=== PATIENT | female | born 2000 | race Caucasian/White ===

== ENCOUNTER 2020-06-15 14:22 | Outpatient (REF) | payer OTHER, SELFPAY ==
[2020-06-16 09:00] LABS: CT PCR NOT DETECTED (Not Detect.); NG PCR NOT DETECTED (Not Detect.)
[2020-06-16 09:05] LABS: BV Int Neg Control Negative (Negative); BV Int Pos Control Positive (Positive)
[2020-06-27 00:56] LABS: HPV 16 RNA NOT DETECTED (NOT DETECTED); HPV mRNA E6/E7 rflx Detected (Not Detected)
== END 2020-06-15 14:23 | disposition home or self-care (01) ==
LOC: HO.LAB 14:22
PROVIDERS: PCP Nurse Practitioner Family; Visit Provider Advanced Practice Midwife
DX: Z30.431 Encounter for routine checking of intrauterine contraceptive device (principal); Z12.4 Encounter for screening for malignant neoplasm of cervix; Z11.51 Encounter for screening for human papillomavirus (HPV); N87.0 Mild cervical dysplasia; Z20.2 Contact with and (suspected) exposure to infections with a predominantly sexual mode of transmission
CPT/HCPCS: 36415; 81025; 87480; 87491; 87510; 87591; 87624; 87625; 87660; 88141; 88142; 99202

== ENCOUNTER → 2020-08-14 12:10 | Outpatient (BNVA) | payer OTHER, SELFPAY | PROVIDERS: Visit Provider Obstetrics & Gynecology ==

== ENCOUNTER 2020-08-18 09:15 | Emergency (ER) | payer OTHER, SELFPAY ==
[2020-08-18 10:10] VITALS: BP 107/63; PULSE 69; RESP 14; TEMP 36.7; O2SAT 99; BMI 28.3
--- NOTE | 2020-08-18 10:29 | ED.ABDPAIN ---
HPI - Abdominal Pain General Chief Complaint: Abdominal Pain <DOMINGO Sutherland Last Filed: 08/18/20 15:16> Stated Complaint: ABD PAIN <DOMINGO Sutherland Last Filed: 08/18/20 15:16> Time Seen by Provider: 08/18/20 10:39 <DOMINGO Sutherland Last Filed: 08/18/20 15:16> Source: patient <DOMINGO Sutherland Last Filed: 08/18/20 15:16> Mode of arrival: ambulatory <DOMINGO Sutherland Last Filed: 08/18/20 15:16> Limitations: no limitations <DOMINGO Sutherland Last Filed: 08/18/20 15:16> History of Present Illness HPI narrative: Patient presents to ED for upper abdominal pain, nausea, vomiting, diarrhea. Patient states she woke up with belly pain and then had 3 episodes of diarrhea and 2 episodes of emesis. Patient denies any fever, chills, dysuria, hematuria, flank pain, coughing, chest pain or, shortness of breath. <DOMINGO Sutherland Last Filed: 08/18/20 15:16> Related Data Home Medications: Home Medications Medication Instructions Recorded Confirmed levonorgestrel 20 mcg/24 hours (6 INTRAUTERINE 06/15/20 06/21/20 yrs) 52 mg intrauterine device Previous Rx's Medication Instructions Recorded metronidazole 500 mg tablet 500 mg PO BID 7 Days #14 tab 07/09/20 <DOMINGO Sutherland Last Filed: 08/18/20 15:16> Allergies/Adverse Reactions: Allergies Allergy/AdvReac Type Severity Reaction Status Date / Time No Known Allergies Allergy Verified 08/14/20 12:11 [No Known Allergies*] <DOMINGO Sutherland Last Filed: 08/18/20 15:16> Review of Systems Review of Systems Yes all other systems are reviewed and are negative <DOMINGO Sutherland Last Filed: 08/18/20 15:16> Constitutional: Reports as per HPI and Reports no additional constitutional complaints <DOMINGO Sutherland Last Filed: 08/18/20 15:16> Eyes: Reports as per HPI and Reports no additional eye complaints <DOMINGO Sutherland Last Filed: 08/18/20 15:16> Reports system reviewed and no additional complaints, except as documented and Reports as per HPI <DOMINGO Sutherland Last Filed: 08/18/20 15:16> Cardiovascular: Reports as per HPI and Reports no additional cardiovascular complaints <DOMINGO Sutherland Last Filed: 08/18/20 15:16> Respiratory: Reports as per HPI and Reports no additional respiratory complaints <DOMINGO Sutherland Last Filed: 08/18/20 15:16> Gastrointestinal: Reports as per HPI, Reports no additional gastrointestinal complaints, Reports abdominal pain (upper), Reports diarrhea, Reports nausea and Reports vomiting <DOMINGO Sutherland Last Filed: 08/18/20 15:16> Genitourinary: Reports no additional female genitourinary complaints and Reports as per HPI <DOMINGO Sutherland Last Filed: 08/18/20 15:16> Musculoskeletal: Reports no additional musculoskeletal complaints and Reports as per HPI <DOMINGO Sutherland Last Filed: 08/18/20 15:16> Reports system reviewed and no additional complaints, except as documented and Reports as per HPI <DOMINGO Sutherland Last Filed: 08/18/20 15:16> Psychiatric: Reports no additional psychiatric complaints and Reports as per HPI <DOMINGO Sutherland - Last Filed: 08/18/20 15:16> Physical Exam Vital Signs: Vital Signs: Last Vital Signs Temp 98.2 F 08/18/20 13:26 Pulse 49 L 08/18/20 13:26 Resp 16 08/18/20 13:26 BP 104/59 L 08/18/20 13:49 Pulse Ox 100 08/18/20 13:26 Body Mass Index 28.3 <DOMINGO Sutherland Last Filed: 08/18/20 15:16> Vital Signs: Last Vital Signs Temp 98.2 F 08/18/20 13:26 Pulse 49 L 08/18/20 13:26 Resp 16 08/18/20 13:26 BP 104/59 L 08/18/20 13:49 Pulse Ox 100 08/18/20 13:26 Body Mass Index 28.3 <Terry Byers MD - Last Filed: 09/10/20 01:37> Const: General: cooperative, healthy appearing, comfortable, no acute distress, well developed, alert, awake and Physically active <Cristofer Deepak, [facility] Last Filed: 08/18/20 15:16> Orientation/consciousness: patient oriented x3 <Cristofer Deepak, PA Last Filed: 08/18/20 15:16> HENMT: Head: Yes normal to inspection, Yes No palpable skull fracture present, Yes normocephalic and Yes atraumatic <Cristofer Deepak, PA Last Filed: 08/18/20 15:16> Eyes: General: appearance normal, both eyes and all related structures <Cristofer Deepak, [facility] Last Filed: 08/18/20 15:16> Neck: Neck: Yes normal visual inspection, Yes full ROM, Yes no lymphadenopathy, Yes no meningeal signs, Yes trachea midline, Yes supple and No tender <Cristofer Deepak, [facility] Last Filed: 08/18/20 15:16> Chest: Chest palpation & inspection: normal inspection of the chest and normal palpation of entire chest wall <Cristofer Deepak, [facility] Last Filed: 08/18/20 15:16> Resp: Effort & Inspection: normal respiratory effort and able to speak in complete sentences <Cristofer Deepak, [facility] Last Filed: 08/18/20 15:16> Auscultation: clear to auscultation bilaterally <Cristofer Deepak, [facility] Last Filed: 08/18/20 15:16> Cardio: Jugular venous distension: no JVD <Cristofer Deepak, [facility] Last Filed: 08/18/20 15:16> Heart sounds: S1 normal heart sound present and S2 normal heart sound present <Cristofer Sotelo [facility] Last Filed: 08/18/20 15:16> GI: Inspection: Yes normal to inspection and No abdominal wall ecchymosis <Cristofer Sotelo [facility] Last Filed: 08/18/20 15:16> Palpation (GI): Tenderness to palpation present (GI) in the epigastrum; not in the LLQ, not in the RLQ, not in the LUQ, not in the RUQ, not at McBurney's point, not periumbilically, not suprapubicly, Shen's sign negative, obturator sign negative, psoas sign negative, with no rebound tenderness and Rovsing's sign negative, no guarding and not rigid <DOMINGO Sutherland - Last Filed: 08/18/20 15:16> : General: No CVA tenderness and Yes no CVA tenderness <DOMINGO Sutherland Last Filed: 08/18/20 15:16> Back/Spine/Pelvis: Back: no CVA tenderness, No CVA tenderness and No back tenderness <DOMINGO Sutherland Last Filed: 08/18/20 15:16> Skin: General skin exam: no rashes or lesions noted and elasticity normal <DOMINGO Sutherland Last Filed: 08/18/20 15:16> Neuro: General: patient oriented x3, no meningeal signs and CN's II-XI intact bilaterally <DOMINGO Sutherland - Last Filed: 08/18/20 15:16> Cranial nerves: Yes CN's II-XII intact bilaterally <DOMINGO Sutherland - Last Filed: 08/18/20 15:16> Extrem: General: Yes normal to inspection and Yes full ROM <DOMINGO Sutherland - Last Filed: 08/18/20 15:16> Psych: Appearance: grossly normal, well kempt and not disheveled <DOMINGO Sutherland Last Filed: 08/18/20 15:16> Course Course Course Narrative: Patient will have labs and GI cocktail to treat symptoms. Patient also be sent for COVID swab. <DOMINGO Sutherland - Last Filed: 08/18/20 15:16> I have reviewed the chart <Terry Byers MD - Last Filed: 09/10/20 01:37> Reevaluation(s) Reevaluation #1: Patient labs are normal. Negative for white blood cell count elevation. LFTs are normal. COVID swab negative. Patient passed p.o. challenge. Will do bedside ultrasound before discharge <DOMINGO Sutherland Last Filed: 08/18/20 15:16> Reevaluation #2: Bedside Negative for gallstones. Patient passed p.o. challenge. Patient will be discharged. Abdomen on re-evaluation is soft and non-tender. <DOMINGO Sutherland Last Filed: 08/18/20 15:16> MDM - Abdominal Pain Lab Data Result diagrams: : 08/18/20 10:43 08/18/20 10:43 <DOMINGO Sutherland - Last Filed: 08/18/20 15:16> Labs: Lab Results 08/18/20 08/18/20 08/18/20 Range/Units 10:43 10:43 10:43 WBC 9.0 (4.8-10.8) X10*3/uL RBC 4.25 (4.20-5.50) X10*6/uL Hgb 13.1 (12.0-16.0) g/dl Hct 39.6 (37-47) % MCV 93.2 (80-98) fL MCH 30.8 (27.0-33.0) pg MCHC 33.1 (31.0-35.0) g/dl RDW 11.5 (11.0-16.0) % Plt Count 205 (160-400) X10*3/uL MPV 10.8 (9.4-12.3) fL Immature Gran % (Auto) 0.4 (0.0-0.4) % Neut % (Auto) 68.7 (45-73) % Lymph % (Auto) 23.6 (20-40) % [place] % (Auto) 6.1 (2-11) % Eos % (Auto) 0.6 (0-4) % Baso % (Auto) 0.6 (0-2) % Lymph # (Auto) 2.1 (1.2-4.9) X10*3/uL [place] # (Auto) 0.6 (0.1-1.2) X10*3/uL Eos # (Auto) 0.1 (0.0-0.4) X10*3/uL Baso # (Auto) 0.1 (0.0-0.2) X10*3/uL Abs Immat Gran (auto) 0.04 H (0.00-0.03) X10*3/uL Absolute Neuts (auto) 6.2 (2.0-8.3) X10*3/uL Absolute Nucleated RBC 0.000 (0.0-0.012) X10*3/uL Nucleated RBC % (auto) 0.0 (0.0-0.2) /100WBC PT 14.8 H (10.8-13.0) SEC INR 1.2 H (0.9-1.1) APTT 34.8 (24.1-38.0) SEC Sodium 140 (135-145) mmol/L Potassium 4.1 (3.3-5.1) mmol/L Chloride 109 H (96-108) mmol/L Carbon Dioxide 26 (22-29) mmol/L Anion Gap 9 L (12-20) BUN 11 (9-16) mg/dL Creatinine 0.70 (0.5-1.4) mg/dL Estim Creat Clear Calc 102.1 Estimated GFR > 60 Random Glucose 108 (60-115) mg/dL Calcium 8.9 (8.4-10.2) mg/dL Total Bilirubin 0.6 (0.0-1.0) mg/dL Direct Bilirubin 0.2 (0.0-0.5) mg/dL AST 12 (5-31) U/L ALT 13 (0-31) U/L Alkaline Phosphatase 58 (39-117) U/L Total Protein 6.2 L (6.5-8.0) g/dL Albumin 3.9 (3.5-5.0) g/dL Lipase 25 (8-78) U/L Urine Color Urine Appearance Urine pH (5.0-8.0) Ur Specific [place] (1.005-1.025) Urine Protein (NEG-TRACE) MG/DL Urine Glucose (UA) (NEG) MG/DL Urine Ketones (NEG) MG/DL Urine Blood (NEG) Urine Nitrite (NEG) Ur Leukocyte Esterase (NEG) Urine Test (NEGATIVE) Coronavirus (PCR) (Negative) Influenza Type A (PCR) (Negative) Influenza Type B (PCR) (Negative) RSV RNA Qual (PCR) (Negative) 08/18/20 08/18/20 08/18/20 Range/Units 10:50 11:55 11:55 WBC (4.8-10.8) X10*3/uL RBC (4.20-5.50) X10*6/uL Hgb (12.0-16.0) g/dl Hct (37-47) % MCV (80-98) fL MCH (27.0-33.0) pg MCHC (31.0-35.0) g/dl RDW (11.0-16.0) % Plt Count (160-400) X10*3/uL MPV (9.4-12.3) fL Immature Gran % (Auto) (0.0-0.4) % Neut % (Auto) (45-73) % Lymph % (Auto) (20-40) % [place] % (Auto) (2-11) % Eos % (Auto) (0-4) % Baso % (Auto) (0-2) % Lymph # (Auto) (1.2-4.9) X10*3/uL [place] # (Auto) (0.1-1.2) X10*3/uL Eos # (Auto) (0.0-0.4) X10*3/uL Baso # (Auto) (0.0-0.2) X10*3/uL Abs Immat Gran (auto) (0.00-0.03) X10*3/uL Absolute Neuts (auto) (2.0-8.3) X10*3/uL Absolute Nucleated RBC (0.0-0.012) X10*3/uL Nucleated RBC % (auto) (0.0-0.2) /100WBC PT (10.8-13.0) SEC INR (0.9-1.1) APTT (24.1-38.0) SEC Sodium (135-145) mmol/L Potassium (3.3-5.1) mmol/L Chloride (96-108) mmol/L Carbon Dioxide (22-29) mmol/L Anion Gap (12-20) BUN (9-16) mg/dL Creatinine (0.5-1.4) mg/dL Estim Creat Clear Calc Estimated GFR Random Glucose (60-115) mg/dL Calcium (8.4-10.2) mg/dL Total Bilirubin (0.0-1.0) mg/dL Direct Bilirubin (0.0-0.5) mg/dL AST (5-31) U/L ALT (0-31) U/L Alkaline Phosphatase (39-117) U/L Total Protein (6.5-8.0) g/dL Albumin (3.5-5.0) g/dL Lipase (8-78) U/L Urine Color YELLOW Urine Appearance CLEAR Urine pH 7.5 (5.0-8.0) Ur Specific [place] <= 1.005 (1.005-1.025) Urine Protein NEG (NEG-TRACE) MG/DL Urine Glucose (UA) NEG (NEG) MG/DL Urine Ketones NEG (NEG) MG/DL Urine Blood NEG (NEG) Urine Nitrite NEG (NEG) Ur Leukocyte Esterase NEG (NEG) Urine Test NEGATIVE (NEGATIVE) Coronavirus (PCR) NEGATIVE (Negative) Influenza Type A (PCR) NEGATIVE (Negative) Influenza Type B (PCR) NEGATIVE (Negative) RSV RNA Qual (PCR) NEGATIVE (Negative) <DOMINGO Sutherland - Last Filed: 08/18/20 15:16> Lab Results 08/18/20 08/18/20 08/18/20 Range/Units 10:43 10:43 10:43 WBC 9.0 (4.8-10.8) X10*3/uL RBC 4.25 (4.20-5.50) X10*6/uL Hgb 13.1 (12.0-16.0) g/dl Hct 39.6 (37-47) % MCV 93.2 (80-98) fL MCH 30.8 (27.0-33.0) pg MCHC 33.1 (31.0-35.0) g/dl RDW 11.5 (11.0-16.0) % Plt Count 205 (160-400) X10*3/uL MPV 10.8 (9.4-12.3) fL Immature Gran % (Auto) 0.4 (0.0-0.4) % Neut % (Auto) 68.7 (45-73) % Lymph % (Auto) 23.6 (20-40) % [place] % (Auto) 6.1 (2-11) % Eos % (Auto) 0.6 (0-4) % Baso % (Auto) 0.6 (0-2) % Lymph # (Auto) 2.1 (1.2-4.9) X10*3/uL [place] # (Auto) 0.6 (0.1-1.2) X10*3/uL Eos # (Auto) 0.1 (0.0-0.4) X10*3/uL Baso # (Auto) 0.1 (0.0-0.2) X10*3/uL Abs Immat Gran (auto) 0.04 H (0.00-0.03) X10*3/uL Absolute Neuts (auto) 6.2 (2.0-8.3) X10*3/uL Absolute Nucleated RBC 0.000 (0.0-0.012) X10*3/uL Nucleated RBC % (auto) 0.0 (0.0-0.2) /100WBC PT 14.8 H (10.8-13.0) SEC INR 1.2 H (0.9-1.1) APTT 34.8 (24.1-38.0) SEC Sodium 140 (135-145) mmol/L Potassium 4.1 (3.3-5.1) mmol/L Chloride 109 H (96-108) mmol/L Carbon Dioxide 26 (22-29) mmol/L Anion Gap 9 L (12-20) BUN 11 (9-16) mg/dL Creatinine 0.70 (0.5-1.4) mg/dL Estim Creat Clear Calc 102.1 Estimated GFR > 60 Random Glucose 108 (60-115) mg/dL Calcium 8.9 (8.4-10.2) mg/dL Total Bilirubin 0.6 (0.0-1.0) mg/dL Direct Bilirubin 0.2 (0.0-0.5) mg/dL AST 12 (5-31) U/L ALT 13 (0-31) U/L Alkaline Phosphatase 58 (39-117) U/L Total Protein 6.2 L (6.5-8.0) g/dL Albumin 3.9 (3.5-5.0) g/dL Lipase 25 (8-78) U/L Urine Color Urine Appearance Urine pH (5.0-8.0) Ur Specific [place] (1.005-1.025) Urine Protein (NEG-TRACE) MG/DL Urine Glucose (UA) (NEG) MG/DL Urine Ketones (NEG) MG/DL Urine Blood (NEG) Urine Nitrite (NEG) Ur Leukocyte Esterase (NEG) Urine Test (NEGATIVE) Coronavirus (PCR) (Negative) Influenza Type A (PCR) (Negative) Influenza Type B (PCR) (Negative) RSV RNA Qual (PCR) (Negative) 08/18/20 08/18/20 08/18/20 Range/Units 10:50 11:55 11:55 WBC (4.8-10.8) X10*3/uL RBC (4.20-5.50) X10*6/uL Hgb (12.0-16.0) g/dl Hct (37-47) % MCV (80-98) fL MCH (27.0-33.0) pg MCHC (31.0-35.0) g/dl RDW (11.0-16.0) % Plt Count (160-400) X10*3/uL MPV (9.4-12.3) fL Immature Gran % (Auto) (0.0-0.4) % Neut % (Auto) (45-73) % Lymph % (Auto) (20-40) % [place] % (Auto) (2-11) % Eos % (Auto) (0-4) % Baso % (Auto) (0-2) % Lymph # (Auto) (1.2-4.9) X10*3/uL [place] # (Auto) (0.1-1.2) X10*3/uL Eos # (Auto) (0.0-0.4) X10*3/uL Baso # (Auto) (0.0-0.2) X10*3/uL Abs Immat Gran (auto) (0.00-0.03) X10*3/uL Absolute Neuts (auto) (2.0-8.3) X10*3/uL Absolute Nucleated RBC (0.0-0.012) X10*3/uL Nucleated RBC % (auto) (0.0-0.2) /100WBC PT (10.8-13.0) SEC INR (0.9-1.1) APTT (24.1-38.0) SEC Sodium (135-145) mmol/L Potassium (3.3-5.1) mmol/L Chloride (96-108) mmol/L Carbon Dioxide (22-29) mmol/L Anion Gap (12-20) BUN (9-16) mg/dL Creatinine (0.5-1.4) mg/dL Estim Creat Clear Calc Estimated GFR Random Glucose (60-115) mg/dL Calcium (8.4-10.2) mg/dL Total Bilirubin (0.0-1.0) mg/dL Direct Bilirubin (0.0-0.5) mg/dL AST (5-31) U/L ALT (0-31) U/L Alkaline Phosphatase (39-117) U/L Total Protein (6.5-8.0) g/dL Albumin (3.5-5.0) g/dL Lipase (8-78) U/L Urine Color YELLOW Urine Appearance CLEAR Urine pH 7.5 (5.0-8.0) Ur Specific [place] <= 1.005 (1.005-1.025) Urine Protein NEG (NEG-TRACE) MG/DL Urine Glucose (UA) NEG (NEG) MG/DL Urine Ketones NEG (NEG) MG/DL Urine Blood NEG (NEG) Urine Nitrite NEG (NEG) Ur Leukocyte Esterase NEG (NEG) Urine Test NEGATIVE (NEGATIVE) Coronavirus (PCR) NEGATIVE (Negative) Influenza Type A (PCR) NEGATIVE (Negative) Influenza Type B (PCR) NEGATIVE (Negative) RSV RNA Qual (PCR) NEGATIVE (Negative) <Terry Byers MD - Last Filed: 09/10/20 01:37> Discharge Plan Discharge Clinical Impression: Gastroenteritis <DOMINGO Sutherland - Last Filed: 08/18/20 15:16> Patient Disposition: Home, Self-Care <DOMINGO Sutherland - Last Filed: 08/18/20 15:16> Instructions: Gastroenteritis (ED) <DOMINGO Sutherland - Last Filed: 08/18/20 15:16> Additional Instructions: Return to the ED immediately for abdominal pain, right lower quadrant pain, decreased appetite, fever, chills, dysuria, hematuria, flank pain, dizziness, weakness, or any other concerning symptoms. Please follow-up with PCP. Your blood work came back fine. COVID swab came back negative. <DOMINGO Sutherland - Last Filed: 08/18/20 15:16> Prescriptions: No Action metronidazole [Flagyl] 500 mg tablet 500 mg PO BID 7 Days Qty: 14 RF: 0 Mirena 20 mcg/24 hours (6 yrs) 52 mg intrauterine device intrauterine RF: 0 <DOMINGO Sutherland - Last Filed: 08/18/20 15:16> Stand Alone Forms: Work/School Release <DOMINGO Sutherland - Last Filed: 08/18/20 15:16> Interventions: ED Discharge Assessment Last Done: 08/18/20 14:16 <DOMINGO Sutherland - Last Filed: 08/18/20 15:16> Discharge Date/Time: 08/18/20 14:41 <DOMINGO Sutherland - Last Filed: 08/18/20 15:16> Print Language: Slovak <DOMINGO Sutherland - Last Filed: 08/18/20 15:16> [facility] Past Medical History Medical History: Medical History History of asthma Physical exam <DOMINGO Sutherland - Last Filed: 08/18/20 15:16> Family History Family History: Family History Mother No problems noted. Father No problems noted. <DOMINGO Sutherland - Last Filed: 08/18/20 15:16> Social History Social History: Social History Alcohol intake: never Use of substances other than those prescribed or required for medical reasons: No Advance Directives: No Advance Directives Information Provided: No Gender identity: female <DOMINGO Sutherland - Last Filed: 08/18/20 15:16>
[2020-08-18 10:51] LABS: MANUAL DIFF FLAG NO
[2020-08-18] MEDS: 0.9 % Sodium Chloride 1,000 ML 999 ML IV (10:52)
[2020-08-18] MEDS: ondansetron HCL 4 MG/2 ML VIAL IVPUSH (10:52)
[2020-08-18] MEDS: Lidocaine HCl Viscous 2 % 15 ML SOLUTION MUCOUS MEM (10:53)
[2020-08-18] MEDS: Famotidine/PF 20 MG/2 ML VIAL IVPUSH (10:53)
[2020-08-18] MEDS: Magnesium Hydrox/Alum Hydrox 30 ML ORAL.SUSP PO (10:53)
[2020-08-18 10:56] LABS: Basophils Absolute Auto 0.1 X10*3/uL (0.0-0.2); Basophils Percent Auto 0.6 % (0-2); Eosinophils Absolute Auto 0.1 X10*3/uL (0.0-0.4); Eosinophils Percent Auto 0.6 % (0-4); Hematocrit 39.6 % (37-47); Hemoglobin 13.1 g/dl (12.0-16.0); Imm Gran Abs Auto 0.04 X10*3/uL (0.00-0.03); Imm Gran Pct Auto 0.4 % (0.0-0.4); Lymphocytes Absolute Auto 2.1 X10*3/uL (1.2-4.9); Lymphocytes Percent Auto 23.6 % (20-40); Mean Corpuscular HGB Conc 33.1 g/dl (31.0-35.0); Mean Corpuscular Hemoglobin 30.8 pg (27.0-33.0); Mean Corpuscular Volume 93.2 fL (80-98); Mean Platelet Volume 10.8 fL (9.4-12.3); Monocytes Absolute Auto 0.6 X10*3/uL (0.1-1.2); Monocytes Percent Auto 6.1 % (2-11); Neutrophils Absolute Auto 6.2 X10*3/uL (2.0-8.3); Neutrophils Percent Auto 68.7 % (45-73); Platelet Count 205 X10*3/uL (160-400); Red Blood Count 4.25 X10*6/uL (4.20-5.50); Red Cell Distribution Width 11.5 % (11.0-16.0)
[2020-08-18 11:03] LABS: INTERNATIONAL NORM RATIO 1.2 (0.9-1.1); Prothrombin Time 14.8 SEC (10.8-13.0)
[2020-08-18 11:06] LABS: Partial Thromboplastin Time 34.8 SEC (24.1-38.0)
[2020-08-18 11:30] LABS: Alanine Aminotransferase 13 U/L (0-31); Albumin Level 3.9 g/dL (3.5-5.0); Alkaline Phosphatase 58 U/L (39-117); Anion Gap 9 (12-20); Aspartate Amino Transferase 12 U/L (5-31); Bilirubin Direct 0.2 mg/dL (0.0-0.5); Bilirubin Total 0.6 mg/dL (0.0-1.0); Blood Urea Nitrogen 11 mg/dL (9-16); Calcium 8.9 mg/dL (8.4-10.2); Carbon Dioxide 26 mmol/L (22-29); Chloride 109 mmol/L (96-108); Creatinine Clr Calc Pharmacy 102.1; Estimated Glomerular Filt Rate > 60; Glucose Random 108 mg/dL (60-115); Lipase 25 U/L (8-78); Potassium 4.1 mmol/L (3.3-5.1); Sodium 140 mmol/L (135-145); Total Protein 6.2 g/dL (6.5-8.0)
[2020-08-18 11:33] LABS: Influenza A PCR NEGATIVE (Negative); Influenza B PCR NEGATIVE (Negative); Resp Syncy Virus RNA Qual PCR NEGATIVE (Negative); SARS COV2 PCR INHOUSE NEGATIVE (Negative)
[2020-08-18 12:23] LABS: Glucose Urine UA NEG (NEG); Leukocyte Esterase Urine NEG (NEG); Nitrite Urine NEG (NEG); PH 7.5 (5.0-8.0); Specific Gravity - Urine <= 1.005 (1.005-1.025); Urine Blood NEG (NEG); Urine Ketones NEG (NEG); Urine Protein NEG (NEG-TRACE)
[2020-08-18 12:28] LABS: UPreg QC Valid YES; Urine Pregnancy NEGATIVE (NEGATIVE)
[2020-08-18 12:29] LABS: Appearance Urine CLEAR; Color Urine YELLOW
[2020-08-18 12:55] VITALS: BP 92/45; PULSE 47; RESP 16; O2SAT 99
[2020-08-18 13:26] VITALS: BP 90/55; PULSE 49; RESP 16; TEMP 36.8; O2SAT 100
[2020-08-18 13:49] VITALS: BP 104/59
== END 2020-08-18 14:41 | disposition home or self-care (01) ==
PROVIDERS: Physician Assistant; Emergency Provider Emergency Medicine
DX: K52.9 Noninfective gastroenteritis and colitis, unspecified (principal); Z20.822 Contact with and (suspected) exposure to COVID-19; R10.10 Upper abdominal pain, unspecified
CPT/HCPCS: 0241U; 36415; 80053; 80076; 81003; 81025; 82248; 83690; 85025; 85610; 85730; 96361; 96374; 96375; 99284; J2405

== ENCOUNTER 2020-09-27 16:26 | Emergency (ER) | payer OTHER, SELFPAY ==
[2020-09-27 16:43] VITALS: BP 103/46; PULSE 67; RESP 16; TEMP 36.4; O2SAT 98; BMI 28.3
--- NOTE | 2020-09-27 16:59 | ED.DENTAL ---
HPI - Dental/Oral General Chief complaint: Dental/Oral Stated complaint: Dental pain Time Seen by Provider: 09/27/20 16:53 Source: patient Mode of arrival: ambulatory Limitations: no limitations History of Present Illness HPI Narrative: 20-year-old female presenting to the ED with complaints of left lower wisdom tooth pain for the past few days worse today. Reports that she has not had time to call her dentist/ oral surgeon although she will call tomorrow. Denies any other symptoms complaints or concerns at this time. Related Data Home Medications Medication Instructions Recorded Confirmed levonorgestrel 20 mcg/24 hours (6 INTRAUTERINE 06/15/20 06/21/20 yrs) 52 mg intrauterine device Previous Rx's Medication Instructions Recorded metronidazole 500 mg tablet 500 mg PO BID 7 Days #14 tab 07/09/20 acetaminophen [Tylenol Extra 1,000 mg PO QID PRN #14 tab 09/27/20 Strength] amoxicillin-pot clavulanate 1 tab PO BID 10 Days #20 tab 09/27/20 [Augmentin] ibuprofen 800 mg PO Q8H PRN #14 tab 09/27/20 oxycodone 5 mg PO BID PRN #10 tab 09/27/20 Allergies Allergy/AdvReac Type Severity Reaction Status Date / Time No Known Allergies Allergy Verified 08/14/20 12:11 [No Known Allergies*] Review of Systems Review of Systems: Constitutional : No Fever, No Chills, No changes in PO intake, No difficulty speaking, no recent dental procedure, no heat or cold intolerance while eating, no recent face trauma, ENT/Mouth : + Dental pain, No Sore throat, No Jaw pain, No throat swelling, No swallowing difficulty, no change in voice, No facial swelling, no drooling, no trismus, no bleeding, no lacerations, no tongue swelling, gum swelling, Eyes: No Eye Pain, No periorbital Swelling Cardiovascular : No Chest Pain, No SOB Respiratory : No Cough, No Sputum, No Wheezing, No Smoke Exposure, No Dyspnea Gastrointestinal : No Nausea, No Vomiting, No Diarrhea Genitourinary : No Dysuria Musculoskeletal : No Myalgias Skin : No rash, no facial swelling or redness, Neuro : No Weakness, No Numbness, No Headache Yes all other systems are reviewed and are negative PMFSH Past Medical History Attestation statement: The following information was validated with the patient. Medical History History of asthma Physical exam Family History Family History Mother No problems noted. Father No problems noted. Social History Social History Alcohol intake: never Advance Directives: No Advance Directives Information Provided: No Patient : No Gender identity: female Physical Exam Vital Signs: Vital Signs: Last Vital Signs Temp 97.6 F 09/27/20 16:43 Pulse 67 09/27/20 16:43 Resp 16 09/27/20 16:43 BP 103/46 L 09/27/20 16:43 Pulse Ox 98 09/27/20 16:43 Body Mass Index 28.3 vital signs have been reviewed as normal and appeared to be correct. Blood pressure normal. Heart rate normal. Respiration rate normal. Temperature normal. Oxygen saturation normal. Appearance: Alert. Oriented X3. No acute distress. Head: Normal external exam. Normocephalic. Atraumatic. Eyes: PERRLA. EOMI. Conjunctiva and sclera normal. Eyelids normal. ENT: EAC normal. TM's Normal. Pharynx normal. Uvula midline. Moist mucous membranes. No trismus noted. No drooling noted. No muffled voice noted. Dentition: Patient with tenderness to palpation to left lower posterior teeth / gum although no fluctuance. No erythema. Gingival within normal limits. No fluctuance. Not consistent with peritonsillar abscess. Not consistent with dental abscess. No salivary duct obstruction noted. Neck: Normal inspection. Neck supple. FROM. No adenopathy. Thyroid Normal. No meningeal signs. No neck mass noted. Trachea midline. CVS: Normal heart rate and rhythm. Heart sound normal. No murmurs noted. Pulses normal throughout. Respiratory: No respiratory distress. Painless inspiration. Breath sounds normal. No wheezes/rales/rhonchi noted. Chest nontender. No accessory muscle usage noted or decreased air movement noted. Back: Full range of motion noted. Skin: Skin warm and dry. Normal skin color. Normal skin turgor. No rashes/lesions/lacerations noted. Extremities:Extremities exhibit normal range of motion. Extremities nontender. Neuro: Oriented X 3. No motor deficit. No sensory deficit. Reflexes normal. Course Course Course Narrative: Patient with dental pain. No signs of infection. Not consistent with peritonsillar abscess / pharyngeal abscess /dental abscess. Will DC home with antibiotics and symptomatic treatment structures to follow-up with dentist/ oral surgeon and to return if any new or worsening symptoms. Patient understands agrees with this plan. MDM - Dental/Oral Medical Records Attestation: I reviewed the patient's medical records. Discharge Plan Discharge Clinical Impression: Toothache Patient Disposition: Home, Self-Care Instructions: Toothache (ED) Prescriptions: New ibuprofen 800 mg tablet 800 mg PO Q8H PRN (Reason: pain) Qty: 14 RF: 0 acetaminophen [Tylenol Extra Strength] 500 mg tablet 1,000 mg PO QID PRN (Reason: fever or pain) Qty: 14 RF: 0 amoxicillin-pot clavulanate [Augmentin] 875-125 mg tablet 1 tab PO BID 10 Days Qty: 20 RF: 0 oxycodone 5 mg tablet 5 mg PO BID PRN (Reason: pain) Qty: 10 RF: 0 No Action metronidazole [Flagyl] 500 mg tablet 500 mg PO BID 7 Days Qty: 14 RF: 0 Mirena 20 mcg/24 hours (6 yrs) 52 mg intrauterine device intrauterine RF: 0 Referrals: Physician,Unknown [Primary Care Provider] - 2 days (your dentist/oral surgeon ) Print Language: Slovak
== END 2020-09-27 17:19 | disposition home or self-care (01) ==
PROVIDERS: Emergency Provider Internal Medicine
DX: K08.89 Other specified disorders of teeth and supporting structures (principal)
CPT/HCPCS: 99283; 99284

== ENCOUNTER 2020-10-19 11:54 | Emergency (ER) | payer OTHER, SELFPAY ==
[2020-10-19 12:24] VITALS: PULSE 78; RESP 20; TEMP 37.1; O2SAT 98; BMI 24.0
--- NOTE | 2020-10-19 13:06 | ED.URI ---
HPI - URI/Sore Throat General Chief Complaint: Upper Respiratory Symptoms Stated Complaint: sore throat, cough Time Seen by Provider: 10/19/20 12:56 Source: patient Mode of arrival: ambulatory Limitations: no limitations History of Present Illness MD elicited complaint: sore throat, rhinorrhea and nasal congestion Onset (ago): day(s) (Two days) Consistency: constant and progressively worsening Severity: moderate Description of mucous: clear, watery and yellow Able to tolerate fluids by mouth: Yes Exacerbating factors: swallowing Relieving factors: nothing Context: sick contacts (Boyfriend with similar symptoms as symptoms ) Associated symptoms: denies other symptoms Treatments prior to arrival: none Related Data Home Medications Medication Instructions Recorded Confirmed levonorgestrel 20 mcg/24 hours (6 INTRAUTERINE 06/15/20 06/21/20 yrs) 52 mg intrauterine device Previous Rx's Medication Instructions Recorded metronidazole 500 mg tablet 500 mg PO BID 7 Days #14 tab 07/09/20 acetaminophen [Tylenol Extra 1,000 mg PO QID PRN #14 tab 09/27/20 Strength] amoxicillin-pot clavulanate 1 tab PO BID 10 Days #20 tab 09/27/20 [Augmentin] ibuprofen 800 mg PO Q8H PRN #14 tab 09/27/20 oxycodone 5 mg PO BID PRN #10 tab 09/27/20 acetaminophen [Tylenol Extra 1,000 mg PO QID PRN #14 tab 10/19/20 Strength] azithromycin See Rx Instructions .ROUTE 10/19/20 .COMPLEX #6 tab codeine-guaifenesin [Guaifenesin 5 ml PO Q6H PRN #120 ml 10/19/20 AC] cyclobenzaprine 10 mg PO Q8H #10 tab 10/19/20 ibuprofen 800 mg PO Q8H PRN #14 tab 10/19/20 Allergies Allergy/AdvReac Type Severity Reaction Status Date / Time No Known Allergies Allergy Verified 08/14/20 12:11 [No Known Allergies*] Review of Systems Review of Systems: Constitutional : No Fever, No Chills, No fatigue, No Malaise ENT/Mouth : Positive sore throat/runny nose Eyes: No Discharge Cardiovascular : No Chest Pain, No SOB Respiratory : No Cough, No Sputum, No Wheezing, No Smoke Exposure, No Dyspnea Gastrointestinal : No Nausea, No Vomiting, No Diarrhea Genitourinary : No irregular bleeding, No Dysuria, No Urinary Frequency, No Hematuria, No Urinary Incontinence, No Urgency, No Flank Pain, Musculoskeletal : No Myalgia Skin : No rash Neuro : No Headache Yes all other systems are reviewed and are negative [facility] Past Medical History Attestation statement: The following information was validated with the patient. Medical History History of asthma Physical exam Family History Family History Mother No problems noted. Father No problems noted. Social History Social History Alcohol intake: never Advance Directives: No Advance Directives Information Provided: No Gender identity: female Physical Exam Vital Signs: Vital Signs: Last Vital Signs Temp 98.8 F 10/19/20 12:24 Pulse 78 10/19/20 12:24 Resp 20 10/19/20 12:24 Pulse Ox 98 10/19/20 12:24 Body Mass Index 24.0 vital signs have been reviewed as normal and appeared to be correct. Blood pressure normal. Heart rate normal. Respiration rate normal. Temperature normal. Oxygen saturation normal. Appearance: Alert. Oriented X3. No acute distress. Head: Normal external exam. Normocephalic. Atraumatic. Eyes: PERRLA. EOMI. Conjunctiva and sclera normal. Eyelids normal. ENT: EAC normal. TM's Normal. Posterior pharynx mildly erythematous. No exudate is noted. Uvula midline. Moist mucous membranes. No trismus noted. No drooling noted. No muffled voice noted. Neck: Normal inspection. Neck supple. FROM. No adenopathy. Thyroid Normal. No meningeal signs. No neck mass noted. CVS: Normal heart rate and rhythm. Heart sound normal. Pulses normal throughout. No murmurs/rales/gallops. Respiratory: No respiratory distress. Painless inspiration. Breath sounds normal. No wheezes/rales/rhonchi noted. Chest nontender. No accessory muscle usage noted or decreased air movement noted. Back: Full range of motion noted. No rashes/lesion/induration/fluctuance or signs of infection noted. Skin: Skin warm and dry. Normal skin color. Normal skin turgor. No rashes/lesions/lacerations noted. Extremities: Extremities exhibit normal range of motion. Extremities nontender. Neuro: Oriented X 3. No motor deficit. No sensory deficit. Reflexes normal. Normal steady gait. No focal neuro deficits noted. Course Course Course Narrative: 20-year-old female with URI symptoms. Not vaccinated for COVID. Boyfriend has similar symptoms. No recent travel. Will swab for COVID/RSV/flu and strep and DC home with antibiotics and symptomatic treatment will call them in approximately 2-4 hours and let them know if they are positive or negative. Patient and boyfriend at bedside understand agree with this plan. MDM - URI/Sore Throat Medical Records Attestation: I reviewed the patient's medical records. Lab Data Attestation: I reviewed the patient's lab results. Discharge Plan Discharge Clinical Impression: Upper respiratory infection Patient Disposition: Home, Self-Care Instructions: Upper Respiratory Infection (ED), COVID-19 (Coronavirus Disease 2019) (ED) Additional Instructions: Based on your symptoms and history we have sent a COVID-19. Although your RESULT IS PENDING at this time. RESULTS should return within 2-4 hours. At this time you will be contacted with either NEGATIVE OR POSITIVE results. -Please wait until we contact you for your results. At this time you will be okay for discharge. Please plan for self quarantine for up to 14 days. Do not expose yourself to others. You may not go to work. If testing does come back negative you may return to activities as long as you are no longer having any symptoms for at least 3 days. Please continue to follow cold instructions and wash your hands frequently. You may take Tylenol as directed on the bottle for pain or fever. Patient seen in the emergency department on 10/19/2020 and should be excused from work until negative test results AND until 72 hours without any symptoms AND at least 10 days have passed since symptoms first appeared or since last exposure to COVID-19 positive patient CDC Guidelines for home isolation: - Stay away from others - WEAR A MASK if you are sick AND STAY HOME - Cover your mouth and nose with a tissue when you cough or sneeze. Dispose of tissues in a lined trash can and wash your hands immediately with soap and water for at least 20 seconds. If soap and water are not available, clean hands with alcohol-based hand net application support specialist that contains at least 60% alcohol. - Clean your hands often with soap and water for at least 20 seconds - Avoid touching your eyes, nose and mouth with unwashed hands - Do not share dishes, drinking glasses, cups, eating utensils, towels, or bedding with other people in your home. After using these items, wash them thoroughly with soap and water or put in the generation technician. - Clean high-touch surfaces in your isolation area ( sick room and bathroom) every day; let a caregiver clean and disinfect high-touch surfaces in other areas of the home. Clean the area or item with soap and water or another detergent if it is dirty. Then, use a household disinfectant. - Limit contact with pets and animals: If you must care for a pet, wash your hands before and after interacting with them). Prescriptions: New cyclobenzaprine 10 mg tablet 10 mg PO Q8H Qty: 10 RF: 0 azithromycin 250 mg tablet See Rx Instructions .ROUTE .COMPLEX Qty: 6 RF: 0 codeine-guaifenesin [Guaifenesin AC] 10-100 mg/5 mL liquid 5 ml PO Q6H PRN (Reason: cold symptoms) Qty: 120 RF: 0 ibuprofen 800 mg tablet 800 mg PO Q8H PRN (Reason: pain) Qty: 14 RF: 0 acetaminophen [Tylenol Extra Strength] 500 mg tablet 1,000 mg PO QID PRN (Reason: fever or pain) Qty: 14 RF: 0 No Action metronidazole [Flagyl] 500 mg tablet 500 mg PO BID 7 Days Qty: 14 RF: 0 ibuprofen 800 mg tablet 800 mg PO Q8H PRN (Reason: pain) Qty: 14 RF: 0 acetaminophen [Tylenol Extra Strength] 500 mg tablet 1,000 mg PO QID PRN (Reason: fever or pain) Qty: 14 RF: 0 amoxicillin-pot clavulanate [Augmentin] 875-125 mg tablet 1 tab PO BID 10 Days Qty: 20 RF: 0 oxycodone 5 mg tablet 5 mg PO BID PRN (Reason: pain) Qty: 10 RF: 0 Mirena 20 mcg/24 hours (6 yrs) 52 mg intrauterine device intrauterine RF: 0 Referrals: Physician,Unknown [Primary Care Provider] - 2 days (your pcp) Stand Alone Forms: Work/School Release Print Language: Estonian
[2020-10-19 13:36] LABS: IDNOW Serial# 08D9AD1C; Strep A Nucleic Acid Positive (Negative)
[2020-10-19 14:03] LABS: Influenza A PCR NEGATIVE (Negative); Influenza B PCR NEGATIVE (Negative); Resp Syncy Virus RNA Qual PCR NEGATIVE (Negative); SARS COV2 PCR INHOUSE NEGATIVE (Negative)
== END 2020-10-19 13:37 | disposition home or self-care (01) ==
PROVIDERS: Physician Assistant Medical; Emergency Provider Emergency Medicine
DX: J06.9 Acute upper respiratory infection, unspecified (principal); Z20.822 Contact with and (suspected) exposure to COVID-19
CPT/HCPCS: 0241U; 36415; 87651; 99283

== ENCOUNTER 2021-01-05 10:07 | Outpatient (REF) | payer OTHER, SELFPAY ==
[2021-01-06 09:21] LABS: CT PCR NOT DETECTED (Not Detect.); NG PCR NOT DETECTED (Not Detect.)
== END 2021-01-05 10:08 | disposition home or self-care (01) ==
LOC: HO.LAB 10:07
PROVIDERS: Visit Provider Obstetrics & Gynecology
DX: N93.9 Abnormal uterine and vaginal bleeding, unspecified (principal); Z97.5 Presence of (intrauterine) contraceptive device
CPT/HCPCS: 87491; 87591; 99212

== ENCOUNTER 2021-04-20 14:34 | Outpatient (REF) | payer OTHER, SELFPAY ==
[2021-04-20 15:55] LABS: Binax Internal Control QC Valid; Binax Now Covid-19 Ag Positive (Negative)
== END 2021-04-20 14:35 | disposition home or self-care (01) ==
LOC: HO.LAB 14:34
PROVIDERS: Visit Provider Internal Medicine
DX: Z20.822 Contact with and (suspected) exposure to COVID-19 (principal)
CPT/HCPCS: C9803

== ENCOUNTER 2021-06-18 13:54 | Outpatient (REF) | payer OTHER, SELFPAY ==
[2021-06-19 02:48] LABS: CT PCR NOT DETECTED (Not Detect.); NG PCR NOT DETECTED (Not Detect.)
[2021-06-19 14:20] LABS: BV Int Neg Control Negative (Negative); BV Int Pos Control Positive (Positive)
[2021-06-23 16:42] LABS: HPV mRNA E6/E7 rflx Not Detected (Not Detected)
== END 2021-06-18 13:55 | disposition home or self-care (01) ==
LOC: HO.LAB 13:54
PROVIDERS: Visit Provider Advanced Practice Midwife
DX: Z01.419 Encounter for gynecological examination (general) (routine) without abnormal findings (principal); Z11.51 Encounter for screening for human papillomavirus (HPV); Z20.2 Contact with and (suspected) exposure to infections with a predominantly sexual mode of transmission
CPT/HCPCS: 87480; 87491; 87510; 87591; 87624; 87660; 88142

== ENCOUNTER → 2021-07-21 09:18 | Outpatient (BNVA) | payer OTHER, SELFPAY | PROVIDERS: Visit Provider Advanced Practice Midwife | DX: Z30.432 Encounter for removal of intrauterine contraceptive device (principal); Z31.69 Encounter for other general counseling and advice on procreation | CPT/HCPCS: 58301; 99212 ==

== ENCOUNTER 2021-11-12 17:43 | Emergency (ER) | payer OTHER, SELFPAY ==
--- NOTE | ~2021-11-12 | US_ITS ---
EXAMINATION: US ABDOMEN LIMITED CLINICAL INFORMATION: This is a 21-year-old female with right upper quadrant pain. Possible gallbladder disease.. COMPARISON: None TECHNIQUE: Real-time imaging of the right upper quadrant abdominal viscera. FINDINGS: PANCREAS: Normal. LIVER: Normal. The liver is normal in size. The liver contour is normal. Parenchymal echogenicity is normal. No focal hepatic lesion. There is no intrahepatic biliary duct dilatation seen. GALLBLADDER: Normal. The gallbladder is physiologically distended without evidence of stones, sludge, polyps, wall thickening or pericholecystic fluid. The patient is tender directly over the gallbladder with the ultrasound transducer. The gallbladder appears contracted which may be accentuating the gallbladder wall thickness measuring 0.4 cm. COMMON BILE DUCT: Normal in caliber measuring 0.6 cm in diameter. RIGHT KIDNEY: Normal. No hydronephrosis. No renal calculi or focal parenchymal lesions. The kidney measures 10.2 cm in maximum dimension. FREE FLUID: None. US/US abdomen limited IMPRESSION: 1. The gallbladder appears contracted and there is tenderness directly over the gallbladder with the ultrasound transducer.
--- NOTE | ~2021-11-12 | XR_ITS ---
EXAMINATION: XR CHEST CLINICAL INFORMATION: Painful breathing COMPARISON: None TECHNIQUE: Frontal view of the chest was obtained. FINDINGS: No significant abnormality is noted involving the heart, lungs, mediastinum, bony thorax or soft tissues. XR/XR chest 1V IMPRESSION: Unremarkable examination.
[2021-11-12 18:32] VITALS: BP 103/64; PULSE 63; RESP 16; TEMP 36.6; O2SAT 100; BMI 26.2
[2021-11-12] MEDS: Ibuprofen 600 MG TABLET PO (18:38)
--- NOTE | 2021-11-12 19:54 | ED.GENADULT ---
HPI - General Adult General Chief complaint: General Medical Stated complaint: sharp pain under R breast/Diff breathing Time Seen by Provider: 11/12/21 19:54 Source: patient Mode of arrival: ambulatory Limitations: no limitations History of Present Illness HPI narrative: Patient is a 21 year old female presenting to the emergency department today with right sided abdominal pain. Patient states that she is having right sided abdominal pain that is worse with inspiration. Patient denies any dizziness, lightheadedness, nausea, vomiting, fever, chills, blurry vision, double vision, loss of vision, chest pain, difficulty breathing, shortness of breath, back pain, night sweats, pain with urination, increased urinary frequency, increased urinary urgency, blood in her urine or stool, syncope or a near syncopal episode, recent trauma or falls, bowel incontinence, bladder incontinence, bowel retention, bladder retention, or any other complaints at this time. Onset (ago): day(s) Location: abdomen and right Radiation: non-radiation Severity: mild Severity scale (1-10): 3 Quality: sharp Pain Consistency: intermittent Relieving factors: none Exacerbating factors: other (deep breathing) Associated symptoms: denies other symptoms Treatments prior to arrival: none Related Data Home Medications Medication Instructions Recorded Confirmed levonorgestrel 20 mcg/24 hours (7 intrauterine 01/05/21 07/21/21 yrs) 52 mg intrauterine device (Mirena) Previous Rx's Medication Instructions Recorded vitamin with calcium 1 tab PO DAILY #90 tabs 06/18/21 no.72-iron 27 mg-folic acid 1 mg tablet ( Vitamins Plus Low Iron) Allergies Allergy/AdvReac Type Severity Reaction Status Date / Time No Known Allergies Allergy Verified 11/12/21 18:35 [No Known Allergies*] Review of Systems Constitutional: Constitutional: Reports no additional constitutional complaints, Denies chills, Denies fever(s) and Denies night sweats Eyes: Eyes: Reports no additional eye complaints, Denies blurry vision, Denies change in vision, Denies diplopia, Denies eye discharge, Denies loss of vision and Denies eye pain ENT: Denies dizziness Cardiovascular: Cardiovascular: Reports no additional cardiovascular complaints, Denies chest pain, Denies lightheadedness, Denies Loss of Consciousness and Denies dyspnea Respiratory: Respiratory: Reports no additional respiratory complaints and Denies dyspnea Gastrointestinal: Gastrointestinal: Reports no additional gastrointestinal complaints, Reports abdominal pain, Denies melena, Denies hematochezia, Denies change in bowel habits and Denies change in stool character Genitourinary: Genitourinary: Denies hematuria, Denies urinary frequency, Denies dysuria, Denies urinary incontinence, Denies urinary hesitancy and Denies urinary urgency Musculoskeletal: Musculoskeletal: Reports no additional musculoskeletal complaints, Denies numbness and Denies tingling Neurologic: Denies dizziness, Denies loss of vision, Denies numbness and Denies tingling Psychiatric: Psychiatric: Reports no additional psychiatric complaints Endocrine: Endocrine: Reports no additional endocrine complaints Hematologic/Lymphatic: Hematologic/Lymphatic: Reports no additional hematologic/lymphatic complaints Allergic/Immunologic: Allergic/Immunologic: Reports no additional allergic/immunologic complaints [facility] Past Medical History Attestation statement: The following information was validated with the patient. Source: old records reviewed Medical History History of asthma Physical exam Surgical History Hx of section Family History Family History Mother No problems noted. Father No problems noted. Social History Social History Alcohol intake: never Advance Directives: No Advance Directives Information Provided: Yes Gender identity: Female Physical Exam ED Vital Signs: Vital Signs - 24 hr 11/12/21 18:32 Temperature 97.9 F Pulse Rate 63 Respiratory Rate 16 Blood Pressure 103/64 Pulse Oximetry 100 Oxygen Delivery Method Room Air BMI result Body Mass Index 26.2 Const General: cooperative, no acute distress, alert and awake Nutritional Appearance: well nourished Orientation/consciousness: patient oriented x3 Limitations: no limitations HENMT Head: Yes normal to inspection and Yes atraumatic Ears: hearing grossly normal bilaterally and external ears normal General nose exam: Normal external nose present, no nasal discharge noted and no epistaxis Face and sinus: Yes normal facial exam, No abrasion and No laceration Mouth: Normal oral and palatal mucosa present, no drooling and no muffled voice Eyes General: appearance normal, both eyes and all related structures Periorbital: periorbital findings normal Eyelids: Yes eyelids normal Conjunctivae: conjunctivae normal Pupils: Equal, round and reactive pupils present EOM: EOMs intact bilaterally Neck Neck: Yes normal visual inspection, Yes full ROM and Yes no lymphadenopathy Chest Chest palpation & inspection: normal inspection of the chest Resp Effort & Inspection: normal respiratory effort and able to speak in complete sentences Auscultation: clear to auscultation bilaterally Cardio Rate: regular rate Rhythm: regular rhythm GI Inspection: Yes normal to inspection Palpation (GI): Soft to palpation, not firm, Tenderness to palpation present (GI) in the RUQ and Shen's sign positive, no guarding and not rigid Neuro General: patient oriented x3 and moves all extremities Cranial nerves: Yes Equal, round and reactive pupils present Cognition (Neuro): normal cognition Motor exam (neuro): 5/5 motor strength present throughout Sensory Exam: Normal double simultaneous stimulation for sensation Coordination: [id number] test normal Extrem General: Yes normal to inspection, Yes full ROM and Yes capillary refill normal Psych Appearance: grossly normal Mental Status: mental status grossly normal Affect: normal affect Attitude: cooperative Thought process: Normal thought process present Thought content: Normal thought content present Insight: Good insight present (Psych) Medical Decision Making MDM Narrative Medical decision making narrative: Patient is a 21 year old female presenting to the emergency department today with right sided abdominal pain. Patient's physical exam showed right upper quadrant abdominal pain and a positive shen's sign. Patient's RUQ ultrasound showed a contracted gallbladder but no acute process. Patient eloped while waiting to have her lab work drawn. I was unable to review the US results or my physical exam findings with the patient. Differential Diagnosis Differential Diagnosis: cholecystitis, bilary colic Medical Records Medical records reviewed: Yes I reviewed the patient's medical records. Imaging Data Abdominal US: Attestation: I personally reviewed and interpreted this imaging study as follows: My impression: No acute process. Radiologist's impression: EXAMINATION: US ABDOMEN LIMITED CLINICAL INFORMATION: This is a 21-year-old female with right upper quadrant pain. Possible gallbladder disease.. COMPARISON: None TECHNIQUE: Real-time imaging of the right upper quadrant abdominal viscera. FINDINGS: PANCREAS: Normal. LIVER: Normal. The liver is normal in size. The liver contour is normal. Parenchymal echogenicity is normal. No focal hepatic lesion. There is no intrahepatic biliary duct dilatation seen. GALLBLADDER: Normal. The gallbladder is physiologically distended without evidence of stones, sludge, polyps, wall thickening or pericholecystic fluid. The patient is tender directly over the gallbladder with the ultrasound transducer. The gallbladder appears contracted which may be accentuating the gallbladder wall thickness measuring 0.4 cm. COMMON BILE DUCT: Normal in caliber measuring 0.6 cm in diameter. RIGHT KIDNEY: Normal. No hydronephrosis. No renal calculi or focal parenchymal lesions. The kidney measures 10.2 cm in maximum dimension. FREE FLUID: None. US/US abdomen limited IMPRESSION: ? 1. The gallbladder appears contracted and there is tenderness directly over the gallbladder with the ultrasound transducer. Dictated By: Dom Dela Cruz MD Signed By: Electronically signed by Dom Dela Cruz MD 11/12/212111 Chest x-ray: Attestation: I personally reviewed and interpreted this imaging study as follows: My impression: No acute process. Radiologist's impression: EXAMINATION: XR CHEST CLINICAL INFORMATION: Painful breathing COMPARISON: None TECHNIQUE: Frontal view of the chest was obtained. FINDINGS: No significant abnormality is noted involving the heart, lungs, mediastinum, bony thorax or soft tissues. XR/XR chest 1V IMPRESSION: Unremarkable examination. Dictated By: Yina Martin MD Signed By: Electronically signed by Yina Martin MD 11/12/21 8315 Discharge Plan Discharge Clinical Impression: Abdominal pain Patient Disposition: Elopement Prescriptions: No Action Vitamin Plus Low Iron 27 mg iron- 1 mg tablet 1 tab PO DAILY Qty: 90 4RF Mirena 20 mcg/24 hours (6 yrs) 52 mg intrauterine device intrauterine Interventions: ED Discharge Assessment Last Done: 11/12/21 22:44 Discharge Date/Time: 11/12/21 22:45
== END 2021-11-12 22:45 | disposition left against medical advice (07) ==
PROVIDERS: Emergency Provider Emergency Medicine; PCP Internal Medicine
DX: R10.9 Unspecified abdominal pain (principal)
CPT/HCPCS: 71045; 76705; 99283; 99284

== ENCOUNTER 2022-01-03 12:43 | Emergency (ER) | payer OTHER, SELFPAY ==
--- NOTE | ~2022-01-03 | US_ITS ---
EXAMINATION: US appendix CLINICAL INFORMATION: Right lower quadrant pain COMPARISON: None. TECHNIQUE: Imaging of the abdomen was performed with a high-frequency linear transducer using graded compression. FINDINGS: The appendix is not demonstrated due to overlying gas and stool. No inflammatory changes are identified in the right lower quadrant. There is no free fluid. US/US appendix IMPRESSION: Appendix is not identified sonographically. No inflammatory changes identified in the right lower quadrant.
--- NOTE | ~2022-01-03 | US_ITS ---
EXAMINATION: US OBSTETRICAL ULTRASOUND CLINICAL INFORMATION: Positive home test, now with right lower quadrant pain COMPARISON: OB ultrasound 07/08/2017. LMP: 11/04/2021. Gestational age by maternal dates is 8 weeks and 4 days. Estimated date of delivery by maternal dates is 08/11/2021. TECHNIQUE: Ultrasound of the maternal pelvis is performed using transabdominal and transvaginal transducers. Transvaginal imaging is performed due to inadequate visualization transabdominally. M-mode Doppler is also performed. FINDINGS: There is a single intrauterine gestational sac with visible yolk sac and embryo. No cardiac activity was identified.. There is no significant subchorionic hemorrhage or hematoma. CRL (crown rump length): 0.2 cm (5 weeks and 6 days +/- 4 days). CONNOR (estimated date of delivery): 08/30/2021 +/- 4 days. MATERNAL ADNEXA: The right maternal ovary measures 3.6 x 1.9 x 1.8 cm. A physiologic hemorrhagic right corpus luteum is noted. The left maternal ovary measures 2.2 x 1.9 x 1.1 cm. Left ovary is unremarkable. There is no significant maternal adnexal mass. Trace pelvic free fluid. US/US pelvic ovarian doppler IMPRESSION: 1. Single intrauterine gestation with ultrasound gestational age of 5 weeks and 6 days +/- 4 days. No cardiac motion was identified which is a finding suspicious for failure however not diagnostic for failure. Recommend follow-up ultrasound in 7-14 days and correlation with beta hCG. 2. No suspicious adnexal mass or findings to suggest ovarian torsion. 3. Trace simple pelvic free fluid.
--- NOTE | ~2022-01-03 | US_ITS ---
EXAMINATION: US OBSTETRICAL ULTRASOUND CLINICAL INFORMATION: Positive home test, now with right lower quadrant pain COMPARISON: OB ultrasound 07/08/2017. LMP: 11/04/2021. Gestational age by maternal dates is 8 weeks and 4 days. Estimated date of delivery by maternal dates is 08/11/2021. TECHNIQUE: Ultrasound of the maternal pelvis is performed using transabdominal and transvaginal transducers. Transvaginal imaging is performed due to inadequate visualization transabdominally. M-mode Doppler is also performed. FINDINGS: There is a single intrauterine gestational sac with visible yolk sac and embryo. No cardiac activity was identified.. There is no significant subchorionic hemorrhage or hematoma. CRL (crown rump length): 0.2 cm (5 weeks and 6 days +/- 4 days). CONNOR (estimated date of delivery): 08/30/2021 +/- 4 days. MATERNAL ADNEXA: The right maternal ovary measures 3.6 x 1.9 x 1.8 cm. A physiologic hemorrhagic right corpus luteum is noted. The left maternal ovary measures 2.2 x 1.9 x 1.1 cm. Left ovary is unremarkable. There is no significant maternal adnexal mass. Trace pelvic free fluid. US/US OB <= 14 weeks fetus IMPRESSION: 1. Single intrauterine gestation with ultrasound gestational age of 5 weeks and 6 days +/- 4 days. No cardiac motion was identified which is a finding suspicious for failure however not diagnostic for failure. Recommend follow-up ultrasound in 7-14 days and correlation with beta hCG. 2. No suspicious adnexal mass or findings to suggest ovarian torsion. 3. Trace simple pelvic free fluid.
[2022-01-03 13:00] VITALS: BP 119/57; PULSE 57; RESP 18; O2SAT 98; BMI 25.0
--- NOTE | 2022-01-03 15:45 | ED_ITS ---
HPI - General Adult General Chief complaint: General Medical Stated complaint: spotting/cramping Time Seen by Provider: 01/03/22 15:44 Source: patient Mode of arrival: ambulatory History of Present Illness HPI narrative: 21-year-old female with positive home test on 12/25/21, presenting to the ED complaining right-sided abdominal/flank pain and brown spotting x today. Reports associated nausea. States symptoms have improved since onset. Denies vomiting, diarrhea/constipation, fever, dysuria, vaginal discharge, concern for STI Onset (ago): hour(s) Related Data Home Medications Medication Instructions Recorded Confirmed levonorgestrel 20 mcg/24 hours (7 intrauterine 01/05/21 07/21/21 yrs) 52 mg intrauterine device (Mirena) Previous Rx's Medication Instructions Recorded vitamin with calcium 1 tab PO DAILY #90 tabs 06/18/21 no.72-iron 27 mg-folic acid 1 mg tablet ( Vitamins Plus Low Iron) Allergies Allergy/AdvReac Type Severity Reaction Status Date / Time No Known Allergies Allergy Verified 11/12/21 18:35 [No Known Allergies*] Review of Systems Review of Systems: Constitutional: No Fever, No Chills, No Fatigue, No Malaise ENT/Mouth: No Hearing loss, No Ear Pain, No Nasal Congestion, No sore throat Eyes: No Eye Pain, No Swelling, No Redness, No Vision Changes Cardiovascular: No Chest Pain, No SOB, No Edema, No Palpitations Respiratory: No Cough, No Sputum, No Dyspnea Gastrointestinal: + Nausea, No Vomiting, No Diarrhea, No Constipation, + Abdominal pain Genitourinary: + irregular bleeding, No Dysuria, No Urinary Frequency, No Hematuria, No Urinary Incontinence/retention, +Flank Pain, No Urinary Flow Changes, No Hesitancy Musculoskeletal: No joint pain, No Myalgias, No Joint Swelling Skin: No Skin Lesions, No rash Neuro: No Weakness, No Loss of Consciousness, No Dizziness, No Headache Yes all other systems are reviewed and are negative Constitutional: Constitutional: Reports as per [facility] Past Medical History Attestation statement: The following information was validated with the patient. Medical History History of asthma Physical exam Surgical History Hx of section Family History Family History Mother No problems noted. Father No problems noted. Social History Social History Alcohol intake: never Advance Directives: Yes Advance Directives Information Provided: Yes Advance Directives on File: No Gender identity: Female Physical Exam ED Vital Signs: Vital Signs - 24 hr 01/03/22 13:00 Pulse Rate 57 Respiratory Rate 18 Blood Pressure 119/57 L Pulse Oximetry 98 Oxygen Delivery Method Room Air BMI result Body Mass Index 25.0 Const General: cooperative, healthy appearing and no acute distress Orientation/consciousness: patient oriented x3 Limitations: no limitations HENMT Head: Yes normal to inspection and Yes atraumatic Ears: hearing grossly normal bilaterally General nose exam: Normal external nose present Face and sinus: Yes normal facial exam Eyes General: appearance normal, both eyes and all related structures EOM: EOMs intact bilaterally Neck Neck: Yes normal visual inspection and Yes no meningeal signs Resp Effort & Inspection: normal respiratory effort and no respiratory distress Cardio Rate: regular rate Heart sounds: S1 normal heart sound present and S2 normal heart sound present GI Inspection: Yes normal to inspection Palpation (GI): Soft to palpation, Tenderness to palpation present (GI) in the RLQ and suprapubicly; with no rebound tenderness, no guarding and not rigid General: Yes CVA tenderness on the right Speculum Exam - Vagina: normal vaginal discharge, No vaginal bleeding and no masses Speculum Exam - Cervix: normal appearance of the cervix Bimanual exam- vagina & uterus: no cervical motion tenderness Bimanual Exam- Adnexa, other: tender on the right OB/external & speculum: No vaginal bleeding Back/Spine/Pelvis Back: CVA tenderness Skin Rashes: no rashes Wounds: no wounds Neuro General: patient oriented x3, tone normal and no meningeal signs Gait exam (Neuro): Normal gait present Extrem General: Yes normal to inspection Course Course Course Narrative: -1714--no leukocytosis. H&H stable. UA with trace ketones and protein. Urine positive -1729--bilirubin is mildly elevated. HCG 7498 -ABO + does not need Rhogam -1835--US appendix IMPRESSION: Appendix is not identified sonographically. No inflammatory changes identified in the right lower quadrant. US OB <= 14 weeks fetus IMPRESSION: 1. Single intrauterine gestation with ultrasound gestational age of? 5 weeks and 6 days +/- 4 days. No cardiac motion was identified which is a finding suspicious for failure however not diagnostic for failure. Recommend follow-up ultrasound in 7-14 days and correlation with beta hCG. 2. No suspicious adnexal mass or findings to suggest ovarian torsion. 3. Trace simple pelvic free fluid. >> patient's pain could be related to hemorrhagic right-sided corpus luteum cys t, could also be appendicitis. This was discussed with patient. Also discussed with patient potential for failed vs being too early. Patient was provided with lab slip for repeat hCG in 48 hours order was also put in the computer. Already has an appointment OBGYN on 01/12, discussed need for repeat ultrasound in 7-14 days. Discussed strict return precautions including increasing worsening/unremitting pain, continued/worsening bleeding, nausea/vomiting/inability to tolerate p.o., fever, etc. to return to the ED immediately Results discussed with patient including worrisome signs and symptoms and strict return precautions, and when to return to the emergency department. They verbalized understanding and feel safe for discharge at this time. Medical Decision Making MDM Narrative Medical decision making narrative: 21-year-old female with positive home test on 12/25/21, presenting to the ED complaining right-sided abdominal/flank pain and brown sp otting x today. On exam vital signs stable, NAD, nontoxic appearing, abdomen soft with RLQ/suprapubic >R and R CVAT, no rebound or guarding, on pelvic exam normal vaginal d/c noted, no appreciable bleeding, no CMT, +R adnexal ttp Concern for ectopic vs ovarian cyst vs torsion vs ?appendicitis vs renal stone/colic or pyelo Lower suspicion for PID or TOA Plan: Labs, UA, , US, STI testing, reassess Medical Records Medical records reviewed: Yes I reviewed the patient's medical records. Lab Data Lab results reviewed: Yes I reviewed the patient's lab results. Result diagrams: 01/03/22 16:55 01/03/22 16:55 Labs: Lab Results 01/03/22 01/03/22 01/03/22 Range/Units 16:55 16:55 16:55 WBC 9.9 (4.8-10.8) X10*3/uL RBC 4.35 (4.20-5.50) X10*6/uL Hgb 13.4 (12.0-16.0) g/dl Hct 38.4 (37.0-47.0) % MCV 88.3 (80.0-98.0) fL MCH 30.8 (27.0-33.0) pg MCHC 34.9 (31.0-35.0) g/dl RDW 11.6 (11.0-16.0) % Plt Count 222 (160-400) X10*3/uL MPV 10.3 (9.4-12.3) fL Immature Gran % (Auto) 0.5 H (0.0-0.4) % Neut % (Auto) 62.6 (45-73) % Lymph % (Auto) 30.8 (20-40) % [place] % (Auto) 5.0 (2-11) % Eos % (Auto) 0.5 (0-4) % Baso % (Auto) 0.6 (0-2) % Lymph # (Auto) 3.1 (1.2-4.9) X10*3/uL [place] # (Auto) 0.5 (0.1-1.2) X10*3/uL Eos # (Auto) 0.1 (0.0-0.4) X10*3/uL Baso # (Auto) 0.1 (0.0-0.2) X10*3/uL Abs Immat Gran (auto) 0.05 H (0.00-0.03) X10*3/uL Absolute Neuts (auto) 6.2 (2.0-8.3) x10*3/uL Absolute Nucleated RBC 0.000 (0.0-0.012) X10*3/uL Nucleated RBC % (auto) 0.0 (0.0-0.2) /100WBC Sodium 139 (135-145) mmol/L Potassium 3.6 (3.3-5.1) mmol/L Chloride 106 (96-108) mmol/L Carbon Dioxide 22 (22-29) mmol/L Anion Gap 15 (12-20) BUN 9 (9-16) mg/dL Creatinine 0.71 (0.5-1.4) mg/dL Estim Creat Clear Calc 94.2 Estimated GFR > 60 Random Glucose 123 H (60-115) mg/dL Calcium 9.7 D (8.4-10.2) mg/dL Total Bilirubin 1.4 H (0.0-1.0) mg/dL Direct Bilirubin 0.6 H (0.0-0.5) mg/dL AST 14 (5-31) U/L ALT 16 (0-31) U/L Alkaline Phosphatase 53 (39-117) U/L Total Protein 7.1 (6.5-8.0) g/dL Albumin 4.4 (3.5-5.0) g/dL Lipase 19 (8-78) U/L Beta HCG, Quant 7498 mIU/mL Urine Color Urine Appearance Urine pH (5.0-9.0) Ur Specific [place] (1.005-1.025) Urine Protein (Neg-Trace) mg/dL Urine Glucose (UA) (Negative) mg/dL Urine Ketones (Negative) mg/dL Urine Blood (Negative) Urine Nitrite (Negative) Ur Leukocyte Esterase (Negative) Urine Test (NEGATIVE) Blood Type A Positive 01/03/22 01/03/22 01/03/22 Range/Units 16:55 16:55 17:11 WBC (4.8-10.8) X10*3/uL RBC (4.20-5.50) X10*6/uL Hgb (12.0-16.0) g/dl Hct (37.0-47.0) % MCV (80.0-98.0) fL MCH (27.0-33.0) pg MCHC (31.0-35.0) g/dl RDW (11.0-16.0) % Plt Count (160-400) X10*3/uL MPV (9.4-12.3) fL Immature Gran % (Auto) (0.0-0.4) % Neut % (Auto) (45-73) % Lymph % (Auto) (20-40) % [place] % (Auto) (2-11) % Eos % (Auto) (0-4) % Baso % (Auto) (0-2) % Lymph # (Auto) (1.2-4.9) X10*3/uL [place] # (Auto) (0.1-1.2) X10*3/uL Eos # (Auto) (0.0-0.4) X10*3/uL Baso # (Auto) (0.0-0.2) X10*3/uL Abs Immat Gran (auto) (0.00-0.03) X10*3/uL Absolute Neuts (auto) (2.0-8.3) x10*3/uL Absolute Nucleated RBC (0.0-0.012) X10*3/uL Nucleated RBC % (auto) (0.0-0.2) /100WBC Sodium (135-145) mmol/L Potassium (3.3-5.1) mmol/L Chloride (96-108) mmol/L Carbon Dioxide (22-29) mmol/L Anion Gap (12-20) BUN (9-16) mg/dL Creatinine (0.5-1.4) mg/dL Estim Creat Clear Calc Estimated GFR Random Glucose (60-115) mg/dL Calcium (8.4-10.2) mg/dL Total Bilirubin (0.0-1.0) mg/dL Direct Bilirubin (0.0-0.5) mg/dL AST (5-31) U/L ALT (0-31) U/L Alkaline Phosphatase (39-117) U/L Total Protein (6.5-8.0) g/dL Albumin (3.5-5.0) g/dL Lipase (8-78) U/L Beta HCG, Quant mIU/mL Urine Color Dark Yellow Cancelled Urine Appearance Clear Cancelled Urine pH 5.5 Cancelled (5.0-9.0) Ur Specific [place] >= 1.030 H Cancelled (1.005-1.025) Urine Protein Trace Cancelled (Neg-Trace) mg/dL Urine Glucose (UA) Negative Cancelled (Negative) mg/dL Urine Ketones Trace Cancelled (Negative) mg/dL Urine Blood Negative Cancelled (Negative) Urine Nitrite Negative Cancelled (Negative) Ur Leukocyte Esterase Negative Cancelled (Negative) Urine Test POSITIVE H (NEGATIVE) Blood Type Discharge Plan Discharge Clinical Impression: Early stage of Patient Disposition: Home, Self-Care Instructions: (ED) Additional Instructions: Your blood work shows that you are Your ultrasound shows a single intrauterine gestation at about 5 weeks and 6 days, there is no cardiac motion identified. This is suspicious for failed , however is not diagnostic/meaning final for a failed YOU NEED TO HAVE A REPEAT ULTRASOUND IN 7-14 DAYS YOU SHOULD HAVE REPEAT BLOOD WORK DRAWN IN 48 HOURS TO MONITOR YOUR HAVE CLOSE FOLLOW-UP WITH OBGYN YOUR ULTRASOUND ALSO SHOWS A HEMORRHAGIC RIGHT CORPUS LUTEUM CYST. THE ULTRASOUND OF THE APPENDIX DID NOT SEE HER APPENDIX, THIS POTENTIALLY STILL COULD BE APPENDICITIS. If you develop persistent or worsening abdominal pain, cramping, nausea, vaginal bleeding, discharge, you are unable to eat or drink or have fever return to the emergency department Prescriptions: No Action Vitamin Plus Low Iron 27 mg iron- 1 mg tablet 1 tab PO DAILY Qty: 90 4RF Mirena 20 mcg/24 hours (6 yrs) 52 mg intrauterine device intrauterine Referrals: Colton Aguilar MD [Physician] - 2 days
[2022-01-03 17:04] LABS: MANUAL DIFF FLAG NO
[2022-01-03 17:05] LABS: Basophils Absolute Auto 0.1 X10*3/uL (0.0-0.2); Basophils Percent Auto 0.6 % (0-2); Eosinophils Absolute Auto 0.1 X10*3/uL (0.0-0.4); Eosinophils Percent Auto 0.5 % (0-4); Hematocrit 38.4 % (37.0-47.0); Hemoglobin 13.4 g/dl (12.0-16.0); Imm Gran Abs Auto 0.05 X10*3/uL (0.00-0.03); Imm Gran Pct Auto 0.5 % (0.0-0.4); Lymphocytes Absolute Auto 3.1 X10*3/uL (1.2-4.9); Lymphocytes Percent Auto 30.8 % (20-40); Mean Corpuscular HGB Conc 34.9 g/dl (31.0-35.0); Mean Corpuscular Hemoglobin 30.8 pg (27.0-33.0); Mean Corpuscular Volume 88.3 fL (80.0-98.0); Mean Platelet Volume 10.3 fL (9.4-12.3); Monocytes Absolute Auto 0.5 X10*3/uL (0.1-1.2); Neutrophils Absolute Auto 6.2 x10*3/uL (2.0-8.3); Neutrophils Percent Auto 62.6 % (45-73); Platelet Count 222 X10*3/uL (160-400); Red Blood Count 4.35 X10*6/uL (4.20-5.50); Red Cell Distribution Width 11.6 % (11.0-16.0); White Blood Count 9.9 X10*3/uL (4.8-10.8)
[2022-01-03 17:06] LABS: Appearance Urine Clear; Color Urine Dark Yellow; Glucose Urine UA Negative (Negative); Leukocyte Esterase Urine Negative (Negative); Nitrite Urine Negative (Negative); PH 5.5 (5.0-9.0); Specific Gravity - Urine >= 1.030 (1.005-1.025); Urine Blood Negative (Negative); Urine Ketones Trace mg/dL (Negative); Urine Protein Trace mg/dL (Neg-Trace)
[2022-01-03 17:08] LABS: UPreg QC Valid YES; Urine Pregnancy POSITIVE (NEGATIVE)
[2022-01-03 17:21] LABS: Alanine Aminotransferase 16 U/L (0-31); Albumin Level 4.4 g/dL (3.5-5.0); Alkaline Phosphatase 53 U/L (39-117); Anion Gap 15 (12-20); Aspartate Amino Transferase 14 U/L (5-31); Bilirubin Direct 0.6 mg/dL (0.0-0.5); Bilirubin Total 1.4 mg/dL (0.0-1.0); Blood Urea Nitrogen 9 mg/dL (9-16); Calcium 9.7 mg/dL (8.4-10.2); Carbon Dioxide 22 mmol/L (22-29); Chloride 106 mmol/L (96-108); Creatinine Clr Calc Pharmacy 94.2; Estimated Glomerular Filt Rate > 60; Glucose Random 123 mg/dL (60-115); Lipase 19 U/L (8-78); Potassium 3.6 mmol/L (3.3-5.1); Sodium 139 mmol/L (135-145); Total Protein 7.1 g/dL (6.5-8.0)
[2022-01-03 17:27] LABS: HCG Quantitative 7498 mIU/mL
[2022-01-04 09:02] LABS: BV Int Neg Control Negative (Negative); BV Int Pos Control Positive (Positive)
[2022-01-04 10:16] LABS: CT PCR NOT DETECTED (Not Detect.); NG PCR NOT DETECTED (Not Detect.)
== END 2022-01-03 19:56 | disposition home or self-care (01) ==
PROVIDERS: Physician Assistant; Emergency Provider Emergency Medicine Emergency Medical Services
DX: O23.591 Infection of other part of genital tract in pregnancy, first trimester (principal); N76.0 Acute vaginitis; Z3A.01 Less than 8 weeks gestation of pregnancy
CPT/HCPCS: 36415; 76705; 76801; 80048; 80076; 81003; 81025; 83690; 84702; 85025; 86900; 86901; 87480; 87491; 87510; 87591; 87660; 93975; 99282; 99283; 99284

== ENCOUNTER 2022-01-05 08:30 | Outpatient (REF) | payer OTHER, SELFPAY ==
[2022-01-05 09:27] LABS: HCG Quantitative 10208 mIU/mL
== END 2022-01-05 08:31 | disposition home or self-care (01) ==
LOC: HO.LAB 08:30
PROVIDERS: Visit Provider Physician Assistant
DX: Z34.80 Encounter for supervision of other normal pregnancy, unspecified trimester (principal)
CPT/HCPCS: 36415; 84702

== ENCOUNTER → 2022-01-12 12:11 | Outpatient (BNVA) | payer OTHER, SELFPAY | PROVIDERS: Visit Provider Advanced Practice Midwife | DX: Z32.01 Encounter for pregnancy test, result positive (principal) | CPT/HCPCS: 81025; 99212 ==

== ENCOUNTER 2022-01-27 11:29 | Outpatient (REF) | payer OTHER, SELFPAY ==
--- NOTE | ~2022-01-27 | US_ITS ---
EXAMINATION: US OBSTETRICAL ULTRASOUND CLINICAL INFORMATION: Check viability COMPARISON: Previous ultrasound 01/03/2022. LMP: 11/04/2021. Gestational age by maternal dates is 12 weeks 0 days. Estimated date of delivery by maternal dates is 08/11/2022. TECHNIQUE: Transabdominal first trimester OB ultrasound FINDINGS: There is a single intrauterine gestational sac with visible yolk sac, embryo/fetus, and cardiac activity. There is no significant subchorionic hemorrhage or hematoma. HR: 167 beats per minute. CRL (crown rump length): 2.3 cm (9 weeks 1 day +/- 4 days). CONNOR (estimated date of delivery): 08/31/2022 +/- 4 days. MATERNAL ADNEXA: The right maternal ovary measures 1.7 x 1.1 x 1.7 cm. The left maternal ovary measures 2.3 x 2.1 x 1.5 cm. There is no significant maternal adnexal mass. No maternal pelvic ascites. US/US OB <= 14 weeks fetus IMPRESSION: 1. Single intrauterine gestation with ultrasound gestational age of 9 weeks 1 day +/- 4 days. 2. Estimated date of delivery is 08/31/2022 +/- 4 days. 3. No maternal adnexal mass or pelvic ascites.
== END 2022-01-27 11:30 | disposition home or self-care (01) ==
LOC: HO.HMGCX 11:29
PROVIDERS: Visit Provider Advanced Practice Midwife
DX: Z34.91 Encounter for supervision of normal pregnancy, unspecified, first trimester (principal)
CPT/HCPCS: 76801

== ENCOUNTER 2022-01-31 07:58 | Emergency (ER) | payer OTHER, SELFPAY ==
--- NOTE | ~2022-01-31 | US_ITS ---
EXAMINATION: US FIRST TRIMESTER CLINICAL INFORMATION: 9 weeks cramping Beta-hCG: Unknown COMPARISON: Prior ultrasound 01/27/2022 TECHNIQUE: Transabdominal imaging was performed. FINDINGS: UTERUS AND INTRAUTERINE GESTATIONAL SAC: There is a single intrauterine gestational sac. CROWN-RUMP LENGTH (CRL) : 2.74 cm, estimated age 9 weeks 4 days, estimated date of confinement is 09/01/2022 YOLK SAC: Not found HEART MOTION: 174 BPM. SUBCHORIONIC HEMORRHAGE: None OVARIES: Right: Normal Left: Normal FREE FLUID: None OTHER FINDINGS: None US/US OB <= 14 weeks fetus IMPRESSION: 1. Single live intrauterine . 2. Estimated age 9 weeks 4 days.. 3. Heart rate 174 bpm
[2022-01-31 08:00] VITALS: BP 105/40; PULSE 64; RESP 18; TEMP 36.6; O2SAT 98; BMI 27.8
[2022-01-31 10:24] VITALS: BP 107/60; PULSE 63; RESP 16; O2SAT 98
[2022-01-31 11:02] LABS: MANUAL DIFF FLAG NO
[2022-01-31 11:04] LABS: Basophils Absolute Auto 0.1 X10*3/uL (0.0-0.2); Basophils Percent Auto 0.5 % (0-2); Eosinophils Absolute Auto 0.1 X10*3/uL (0.0-0.4); Eosinophils Percent Auto 0.4 % (0-4); Hematocrit 35.1 % (37.0-47.0); Imm Gran Abs Auto 0.14 X10*3/uL (0.00-0.03); Imm Gran Pct Auto 1.2 % (0.0-0.4); Lymphocytes Absolute Auto 2.3 X10*3/uL (1.2-4.9); Lymphocytes Percent Auto 19.5 % (20-40); Mean Corpuscular HGB Conc 34.2 g/dl (31.0-35.0); Mean Corpuscular Hemoglobin 31.4 pg (27.0-33.0); Mean Corpuscular Volume 91.9 fL (80.0-98.0); Mean Platelet Volume 10.1 fL (9.4-12.3); Monocytes Absolute Auto 0.7 X10*3/uL (0.1-1.2); Neutrophils Absolute Auto 8.6 x10*3/uL (2.0-8.3); Neutrophils Percent Auto 72.4 % (45-73); Platelet Count 209 X10*3/uL (160-400); Red Blood Count 3.82 X10*6/uL (4.20-5.50); Red Cell Distribution Width 12.1 % (11.0-16.0); White Blood Count 11.8 X10*3/uL (4.8-10.8)
[2022-01-31 11:07] LABS: Appearance Urine Cloudy; Color Urine Yellow; Glucose Urine UA Negative (Negative); Leukocyte Esterase Urine Large (3+) (Negative); Nitrite Urine Negative (Negative); UMIC TRIGGER UACC YES; Urine Blood Large (3+) (Negative); Urine Ketones Negative (Negative); Urine Protein Trace mg/dL (Neg-Trace)
[2022-01-31 11:21] LABS: Alanine Aminotransferase 31 U/L (0-31); Albumin Level 3.7 g/dL (3.5-5.0); Alkaline Phosphatase 43 U/L (39-117); Anion Gap 11 (12-20); Aspartate Amino Transferase 14 U/L (5-31); Bilirubin Total 0.8 mg/dL (0.0-1.0); Blood Urea Nitrogen 7 mg/dL (9-16); Calcium 9.1 mg/dL (8.4-10.2); Carbon Dioxide 25 mmol/L (22-29); Chloride 104 mmol/L (96-108); Creatinine Clr Calc Pharmacy 117.3; Estimated Glomerular Filt Rate > 60; Glucose Random 83 mg/dL (60-115); Potassium 4.1 mmol/L (3.3-5.1); Sodium 136 mmol/L (135-145); Total Protein 6.2 g/dL (6.5-8.0)
[2022-01-31 11:24] LABS: Bacteria Urine 2+ (None Seen); Hyaline Casts Urine 0-2 /LPF (0-2); Squamous Epithelial Cell Urine >20 /HPF (0-2); UACC Culture Trigger YES; WBC Urine >50 /HPF (0-5)
--- NOTE | 2022-01-31 11:42 | ED.PREGNANCY ---
HPI - General Chief complaint: Vaginal Bleeding Stated complaint: 9 wks preg/cramping/spotting Time Seen by Provider: 01/31/22 09:57 Source: patient Mode of arrival: ambulatory History of Present Illness HPI Narrative: 21-year-old female, who presents with an approximate 9 week gestation and complaints of finding blood on wiping after urinating this morning and then thereafter began developing lower pelvic/abdominal cramping. She denies any associated fever, chills, nausea, vomiting, diarrhea. In addition, she denies any urinary symptoms. Related Data Previous Rx's Medication Instructions Recorded vitamin with calcium 1 tab PO DAILY #90 tabs 06/18/21 no.72-iron 27 mg-folic acid 1 mg tablet ( Vitamins Plus Low Iron) metronidazole 500 mg tablet 500 mg PO BID 7 days #14 tabs 01/06/22 Allergies Allergy/AdvReac Type Severity Reaction Status Date / Time No Known Allergies Allergy Verified 01/12/22 12:21 [No Known Allergies*] Review of Systems Review of Systems: Pertinent positives and negatives as stated in HPI 10 point review of systems otherwise negative. PMFSH Past Medical History Source: nursing notes reviewed Medical History History of asthma Physical exam Surgical History Hx of section Family History Family History Mother No problems noted. Father No problems noted. Social History Social History Alcohol intake: never Advance Directives: Yes Advance Directives Information Provided: Yes Advance Directives on File: No Gender identity: Female Physical Exam Vital Signs: Vital Signs: Last Vital Signs Temp 98 F 01/31/22 08:00 Pulse 63 01/31/22 10:24 Resp 16 01/31/22 10:24 BP 107/60 01/31/22 10:24 Pulse Ox 98 01/31/22 10:24 O2 Del Method 01/31/22 10:24 BMI result Body Mass Index 27.8 VITAL SIGNS: Reviewed. GENERAL: Well developed, well nourished, in no acute distress. HEAD: Normocephalic/atraumatic EYES: PERRLA, EOMI EARS: Ext canals without abnormality OROPHARYNX: no oral lesions noted, posterior pharynx clear LUNGS: Normal breath sounds. No adventitious sounds or accessory muscle use. SpO2<98> CARDIOVASCULAR: Regular rate and rhythm without noted murmurs ABDOMEN: Soft, non-tender, non-distended with bowel sounds. MUSCULOSKELETAL: No tenderness, deformities, or effusions noted on gross inspection. EXTREMITIES: No cyanosis, clubbing or edema. SKIN: Inspection of the skin reveals no rashes NEUROLOGIC: Alert and oriented x 4. Strength and sensation to light touch were grossly intact x 4. Course Course Course Narrative: 21-year-old female with history and clinical presentation concerning for possible SAB, review of all investigations negative for acute findings and ultrasound demonstrates an IUP at 9.4 weeks, heart tones-174. Patient provided with Tylenol and is tolerating oral intake without difficulty. 1248: [facility], Prema Lambert, who informs me that patient has an appointment tomorrow and that they will follow-up on hcg. All results and findings discussed with the patient at bedside she is discharged home in stable condition with instructions to contact the [facility] should she develop any worsening bleeding as well as consider coming into the emergency room. MDM - OB/Uterine Contractions Lab Data Result diagrams: 01/31/22 10:54 01/31/22 10:54 Labs: Lab Results 01/31/22 01/31/22 01/31/22 Range/Units 10:54 10:54 10:54 WBC 11.8 H (4.8-10.8) X10*3/uL RBC 3.82 L (4.20-5.50) X10*6/uL Hgb 12.0 (12.0-16.0) g/dl Hct 35.1 L (37.0-47.0) % MCV 91.9 (80.0-98.0) fL MCH 31.4 (27.0-33.0) pg MCHC 34.2 (31.0-35.0) g/dl RDW 12.1 (11.0-16.0) % Plt Count 209 (160-400) X10*3/uL MPV 10.1 (9.4-12.3) fL Immature Gran % (Auto) 1.2 H (0.0-0.4) % Neut % (Auto) 72.4 (45-73) % Lymph % (Auto) 19.5 L (20-40) % [place] % (Auto) 6.0 (2-11) % Eos % (Auto) 0.4 (0-4) % Baso % (Auto) 0.5 (0-2) % Lymph # (Auto) 2.3 (1.2-4.9) X10*3/uL [place] # (Auto) 0.7 (0.1-1.2) X10*3/uL Eos # (Auto) 0.1 (0.0-0.4) X10*3/uL Baso # (Auto) 0.1 (0.0-0.2) X10*3/uL Abs Immat Gran (auto) 0.14 H (0.00-0.03) X10*3/uL Absolute Neuts (auto) 8.6 H (2.0-8.3) x10*3/uL Absolute Nucleated RBC 0.000 (0.0-0.012) X10*3/uL Nucleated RBC % (auto) 0.0 (0.0-0.2) /100WBC Sodium 136 (135-145) mmol/L Potassium 4.1 (3.3-5.1) mmol/L Chloride 104 (96-108) mmol/L Carbon Dioxide 25 (22-29) mmol/L Anion Gap 11 L (12-20) BUN 7 L (9-16) mg/dL Creatinine 0.60 (0.5-1.4) mg/dL Estim Creat Clear Calc 117.3 Estimated GFR > 60 Random Glucose 83 (60-115) mg/dL Calcium 9.1 D (8.4-10.2) mg/dL Total Bilirubin 0.8 (0.0-1.0) mg/dL AST 14 (5-31) U/L ALT 31 (0-31) U/L Alkaline Phosphatase 43 (39-117) U/L Total Protein 6.2 L (6.5-8.0) g/dL Albumin 3.7 (3.5-5.0) g/dL Beta HCG, Quant 41185 mIU/mL Urine Color Yellow Urine Appearance Cloudy Urine pH 6.0 (5.0-9.0) Ur Specific [place] 1.020 (1.005-1.025) Urine Protein Trace (Neg-Trace) mg/dL Urine Glucose (UA) Negative (Negative) mg/dL Urine Ketones Negative (Negative) mg/dL Urine Blood Large (3+) H (Negative) Urine Nitrite Negative (Negative) Ur Leukocyte Esterase Large (3+) H (Negative) Urine RBC 6-10 H (0-2) /HPF Urine WBC >50 H (0-5) /HPF Ur Squamous Epith Cells >20 (0-2) /HPF Urine Bacteria 2+ (None Seen) Hyaline Casts 0-2 (0-2) /LPF Discharge Plan Discharge Clinical Impression: , Vaginal spotting Patient Disposition: Home, Self-Care Instructions: at 7 to 10 Weeks (ED) Additional Instructions: 1. Resume all home medications as prescribed. Increase the amount of water that you are drinking. 2. Keep your appointment that is scheduled for tomorrow, 02/01 and you will be further evaluated. Do not hesitate to return to the emergency room if you experience any worsening vaginal bleeding or abdominal pain. Prescriptions: No Action metronidazole 500 mg tablet 500 mg PO BID 7 Days Qty: 14 0RF Vitamin Plus Low Iron 27 mg iron- 1 mg tablet 1 tab PO DAILY Qty: 90 4RF Referrals: Robert Coelho MD [Primary Care Provider] - Colton Aguilar MD [Physician] -
[2022-01-31 11:55] LABS: HCG Quantitative 92401 mIU/mL
[2022-01-31 12:54] VITALS: BP 105/54; PULSE 74; RESP 18; TEMP 36.6; O2SAT 93
== END 2022-01-31 13:19 | disposition home or self-care (01) ==
PROVIDERS: Emergency Provider Student in an Organized Health Care Education/Training Program; PCP Internal Medicine
DX: O26.91 Pregnancy related conditions, unspecified, first trimester (principal); Z3A.09 9 weeks gestation of pregnancy; Z79.899 Other long term (current) drug therapy
CPT/HCPCS: 36415; 76801; 80053; 81001; 84702; 85025; 87086; 99283; 99284

== ENCOUNTER 2022-02-01 10:56 | Outpatient (REF) | payer OTHER, SELFPAY ==
[2022-02-01 11:33] LABS: Hematocrit 35.6 % (37.0-47.0); Hemoglobin 12.2 g/dl (12.0-16.0); Mean Corpuscular HGB Conc 34.3 g/dl (31.0-35.0); Mean Corpuscular Hemoglobin 31.2 pg (27.0-33.0); Mean Platelet Volume 10.2 fL (9.4-12.3); Platelet Count 215 X10*3/uL (160-400); Red Blood Count 3.91 X10*6/uL (4.20-5.50); Red Cell Distribution Width 12.1 % (11.0-16.0); White Blood Count 10.2 X10*3/uL (4.8-10.8)
[2022-02-01 12:21] LABS: HBsAGNum1 0.14 S/CO (0.00-0.99); HIV AB/AG Nonreactive (Nonreactive); HIV Num 1 0.13 S/CO (0.00-0.99); Hepatitis B Surface Antigen Negative (Negative); ~HepC Num1 0.06 S/CO (0.00-0.79); ~Hepatitis C Antibody Nonreactive (Nonreactive)
[2022-02-01 13:48] LABS: Amphetamine Screen Urine Not Detected (Not Detect); Barbiturates, Urine Not Detected (Not Detect); Benzodiazepines Screen Urine Not Detected (Not Detect); Cannabinoid Screen Urine POSITIVE (Not Detect); Cocaine Screen Urine Not Detected (Not Detect); Fentanyl, urine Not Detected (Not Detect); Opiate Screen Urine Not Detected (Not Detect); Phencyclidine Screen Urine Not Detected (Not Detect)
[2022-02-02 07:59] LABS: Syphilis Screen Nonreactive (Nonreactive)
[2022-02-02 09:27] LABS: Rubella IgG Antibody 1.51 Index; Varicella IgG Antibody <135.00 index
[2022-02-10 17:26] LABS: CF Ethnicity NG; Cystic Fibrosis NEGATIVE (NEGATIVE)
== END 2022-02-01 10:57 | disposition home or self-care (01) ==
LOC: HO.LAB 10:56
PROVIDERS: Visit Provider Advanced Practice Midwife
DX: Z34.90 Encounter for supervision of normal pregnancy, unspecified, unspecified trimester (principal)
CPT/HCPCS: 80307; 81220; 85027; 86762; 86780; 86787; 86803; 86850; 86900; 87086; 87088; 87186; 87340; 87389; 99212

== ENCOUNTER → 2022-02-17 10:26 | Outpatient (BNVA) | payer OTHER, SELFPAY | PROVIDERS: PCP Internal Medicine; Visit Provider Advanced Practice Midwife | DX: Z34.81 Encounter for supervision of other normal pregnancy, first trimester (principal); Z23 Encounter for immunization; Z3A.12 12 weeks gestation of pregnancy | CPT/HCPCS: 90471; 90686; 99212 ==

== ENCOUNTER 2022-03-31 11:31 | Emergency (ER) | payer OTHER, SELFPAY ==
--- NOTE | ~2022-03-31 | US_ITS ---
EXAMINATION: ULTRASOUND OB LIMITED. CLINICAL INFORMATION: Abdominal cramping. COMPARISON: OB ultrasound 01/31/2022 TECHNIQUE: Transabdominal imaging of abdomen was performed. FINDINGS: This single live intrauterine fetus in cephalic position with a heart rate of 1 44 bpm. The placenta is posterior and to the right. The cervix is within normal limits. Normal movement seen. US/US OB limited IMPRESSION: Single live intrauterine fetus in cephalic position. The cervix is closed.
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
[2022-03-31 11:45] VITALS: BP 105/57; PULSE 68; RESP 18; TEMP 36.9; O2SAT 96; BMI 30.7
[2022-03-31 12:06] LABS: MANUAL DIFF FLAG NO
[2022-03-31 12:07] LABS: Basophils Absolute Auto 0.1 X10*3/uL (0.0-0.2); Basophils Percent Auto 0.5 % (0-2); Eosinophils Absolute Auto 0.1 X10*3/uL (0.0-0.4); Eosinophils Percent Auto 1.3 % (0-4); Hematocrit 35.1 % (37.0-47.0); Imm Gran Abs Auto 0.28 X10*3/uL (0.00-0.03); Imm Gran Pct Auto 2.6 % (0.0-0.4); Lymphocytes Absolute Auto 2.2 X10*3/uL (1.2-4.9); Mean Corpuscular HGB Conc 34.2 g/dl (31.0-35.0); Mean Corpuscular Hemoglobin 31.5 pg (27.0-33.0); Mean Corpuscular Volume 92.1 fL (80.0-98.0); Mean Platelet Volume 10.1 fL (9.4-12.3); Monocytes Absolute Auto 0.6 X10*3/uL (0.1-1.2); Monocytes Percent Auto 5.6 % (2-11); Neutrophils Absolute Auto 7.7 x10*3/uL (2.0-8.3); Platelet Count 189 X10*3/uL (160-400); Red Blood Count 3.81 X10*6/uL (4.20-5.50); Red Cell Distribution Width 11.8 % (11.0-16.0); White Blood Count 10.9 X10*3/uL (4.8-10.8)
[2022-03-31 12:24] LABS: Alanine Aminotransferase 17 U/L (0-31); Albumin Level 3.6 g/dL (3.5-5.0); Alkaline Phosphatase 49 U/L (39-117); Anion Gap 11 (12-20); Aspartate Amino Transferase 15 U/L (5-31); Bilirubin Direct 0.2 mg/dL (0.0-0.5); Bilirubin Total 0.6 mg/dL (0.0-1.0); Blood Urea Nitrogen 5 mg/dL (9-16); Calcium 8.9 mg/dL (8.4-10.2); Carbon Dioxide 22 mmol/L (22-29); Chloride 107 mmol/L (96-108); Creatinine Clr Calc Pharmacy 131.9; Estimated Glomerular Filt Rate > 60; Glucose Random 87 mg/dL (60-115); Potassium 3.8 mmol/L (3.3-5.1); Sodium 136 mmol/L (135-145); Total Protein 6.4 g/dL (6.5-8.0)
[2022-03-31 12:30] LABS: HCG Quantitative 12790 mIU/mL
== END 2022-03-31 19:50 | disposition left against medical advice (07) ==
PROVIDERS: Nurse Practitioner Family; Emergency Provider Emergency Medicine; PCP Internal Medicine
DX: O26.892 Other specified pregnancy related conditions, second trimester (principal); R10.9 Unspecified abdominal pain; Z3A.18 18 weeks gestation of pregnancy
CPT/HCPCS: 36415; 76815; 80048; 80076; 84702; 85025; 99282; 99284

== ENCOUNTER 2023-01-04 11:42 | Emergency (ER) | payer OTHER, SELFPAY ==
--- NOTE | ~2023-01-04 | XR_ITS ---
EXAMINATION: XR CHEST CLINICAL INFORMATION: Cough and chest tightness COMPARISON: 11/12/2021 TECHNIQUE: 2 views of the chest were obtained. FINDINGS: No significant abnormality is noted involving the heart, lungs, mediastinum, bony thorax or soft tissues. XR/XR chest 2V IMPRESSION: Unremarkable examination.
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
[2023-01-04 12:29] VITALS: BP 110/59; PULSE 71; RESP 16; TEMP 36.6; O2SAT 95; BMI 32.3
[2023-01-04 12:53] LABS: IDNOW Serial# 08D9AD1C; Strep A Nucleic Acid Negative (Negative)
[2023-01-04 13:00] LABS: IDNOW Serial# 9DB6401D; Influenza A Negative (Negative); Influenza B2 Negative (Negative)
[2023-01-04 13:04] LABS: COVID-19 Test Negative (Negative); IDNOW Serial# BCCEAD1C
== END 2023-01-04 15:04 | disposition home or self-care (01) ==
PROVIDERS: Physician Assistant; Emergency Provider Emergency Medicine
DX: B34.9 Viral infection, unspecified (principal); R06.02 Shortness of breath; R05.9 Cough, unspecified; R07.9 Chest pain, unspecified; J02.9 Acute pharyngitis, unspecified; Z20.822 Contact with and (suspected) exposure to COVID-19; Z20.828 Contact with and (suspected) exposure to other viral communicable diseases; Z79.899 Other long term (current) drug therapy
CPT/HCPCS: 71046; 87502; 87635; 87651; 99282; 99283

== ENCOUNTER → 2024-01-22 09:13 | Outpatient (BNVA) | payer OTHER, SELFPAY | PROVIDERS: Visit Provider Nurse Practitioner Family ==

== ENCOUNTER 2024-02-06 13:09 | Outpatient (AMB) | payer OTHER, SELFPAY ==
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
[2024-02-06 13:18] VITALS: BP 88/50; PULSE 50; RESP 12; O2SAT 99; BMI 27.9
== END 2024-02-06 16:32 | disposition home or self-care (01) ==
PROVIDERS: PCP Nurse Practitioner Family; Visit Provider Nurse Practitioner Family
DX: Z76.89 Persons encountering health services in other specified circumstances (principal); F33.1 Major depressive disorder, recurrent, moderate; F41.1 Generalized anxiety disorder; F43.10 Post-traumatic stress disorder, unspecified; Z87.898 Personal history of other specified conditions

== ENCOUNTER → 2024-02-06 13:09 | Outpatient (BNVA) | payer OTHER, SELFPAY | PROVIDERS: Visit Provider Nurse Practitioner Family | DX: Z76.89 Persons encountering health services in other specified circumstances (principal); F33.1 Major depressive disorder, recurrent, moderate; F41.1 Generalized anxiety disorder; F43.10 Post-traumatic stress disorder, unspecified; Z87.898 Personal history of other specified conditions | CPT/HCPCS: 96127 ==

== ENCOUNTER 2024-02-23 15:58 | Outpatient (AMB) | payer OTHER, SELFPAY ==
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
== END 2024-02-23 16:11 | disposition home or self-care (01) ==
PROVIDERS: PCP Nurse Practitioner Family; Visit Provider Nurse Practitioner Family
DX: F43.10 Post-traumatic stress disorder, unspecified (principal); F41.1 Generalized anxiety disorder

== ENCOUNTER 2024-03-09 11:33 | Emergency (ER) | payer MEDICAID, SELFPAY ==
[2024-03-09 11:44] VITALS: BP 142/70; PULSE 57; RESP 19; TEMP 37.2; O2SAT 98; BMI 26.7
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
[2024-03-09] MEDS: Ondansetron ODT 4 MG TAB.RAPDIS TRANSLINGU (11:49)
[2024-03-09 12:03] LABS: MANUAL DIFF FLAG NO
[2024-03-09 12:05] LABS: Basophils Percent Auto 0.1 % (0-2); Hematocrit 40.4 % (37.0-47.0); Imm Gran Abs Auto 0.04 X10*3/uL (0.00-0.03); Imm Gran Pct Auto 0.3 % (0.0-0.4); Lymphocytes Absolute Auto 0.9 X10*3/uL (1.2-4.9); Lymphocytes Percent Auto 6.8 % (20-40); Mean Corpuscular HGB Conc 34.7 g/dl (31.0-35.0); Mean Corpuscular Hemoglobin 31.1 pg (27.0-33.0); Mean Corpuscular Volume 89.8 fL (80.0-98.0); Mean Platelet Volume 11.1 fL (9.4-12.3); Monocytes Absolute Auto 0.4 X10*3/uL (0.1-1.2); Monocytes Percent Auto 2.8 % (2-11); Neutrophils Absolute Auto 11.2 x10*3/uL (2.0-8.3); Platelet Count 240 X10*3/uL (160-400); Red Cell Distribution Width 11.6 % (11.0-16.0); White Blood Count 12.5 X10*3/uL (4.8-10.8)
[2024-03-09 12:18] LABS: Alanine Aminotransferase 20 U/L (0-31); Albumin Level 4.5 g/dL (3.5-5.0); Alkaline Phosphatase 56 U/L (39-117); Anion Gap 15 (12-20); Aspartate Amino Transferase 19 U/L (5-31); Bilirubin Direct 0.5 mg/dL (0.0-0.5); Bilirubin Total 1.7 mg/dL (0.0-1.0); Blood Urea Nitrogen 11 mg/dL (9-16); Calcium 10.1 mg/dL (8.4-10.2); Carbon Dioxide 19 mmol/L (22-29); Chloride 108 mmol/L (96-108); Creatinine Clr Calc Pharmacy 99.6; Estimated Glomerular Filt Rate > 60; Glucose Random 144 mg/dL (60-115); Lipase 13 U/L (8-78); Potassium 3.8 mmol/L (3.3-5.1); Sodium 138 mmol/L (135-145); Total Protein 7.2 g/dL (6.5-8.0)
[2024-03-09 12:24] LABS: Appearance Urine Cloudy; Color Urine Yellow; Glucose Urine UA 100 mg/dL (Negative); Leukocyte Esterase Urine Trace (Negative); Nitrite Urine Negative (Negative); PH >= 9.0 (5.0-9.0); Specific Gravity - Urine >= 1.030 (1.005-1.025); UMIC TRIGGER UACC YES; Urine Blood Negative (Negative); Urine Ketones Trace mg/dL (Negative); Urine Protein 30 (1+) mg/dL (Neg-Trace)
[2024-03-09 12:27] LABS: UPreg QC Valid YES; Urine Pregnancy NEGATIVE (NEGATIVE)
[2024-03-09 12:35] LABS: Bacteria Urine Trace (None Seen); Hyaline Casts Urine 0-2 /LPF (0-2); RBC Urine 0-2 /HPF (0-2); Squamous Epithelial Cell Urine >20 /HPF (0-2); WBC Urine 0-5 /HPF (0-5)
[2024-03-09 12:42] LABS: Influenza A PCR NEGATIVE (Negative); Influenza B PCR NEGATIVE (Negative); Resp Syncy Virus RNA Qual PCR NEGATIVE (Negative); SARS COV2 PCR INHOUSE NEGATIVE (Negative)
[2024-03-09 15:43] VITALS: BP 93/41; PULSE 60; RESP 20; TEMP 37.1; O2SAT 96
[2024-03-09 15:47] VITALS: BP 106/41
[2024-03-09] MEDS: 0.9 % Sodium Chloride 1,000 ML 999 ML IV (16:11)
[2024-03-09 16:15] LABS: C Reactive Protein 0.65 mg/dL (< or = 0.50)
[2024-03-09 18:14] VITALS: BP 104/44; PULSE 62; RESP 16; TEMP 36.8; O2SAT 99
[2024-03-09 18:16] VITALS: BP 104/44; PULSE 62; RESP 16; TEMP 36.8; O2SAT 99
== END 2024-03-09 18:17 | disposition home or self-care (01) ==
PROVIDERS: Nurse Practitioner Family; Emergency Provider Emergency Medicine; PCP Nurse Practitioner Family
DX: R10.9 Unspecified abdominal pain (principal); R11.2 Nausea with vomiting, unspecified; R19.7 Diarrhea, unspecified; Z03.818 Encounter for observation for suspected exposure to other biological agents ruled out; J45.20 Mild intermittent asthma, uncomplicated; Z87.440 Personal history of urinary (tract) infections
CPT/HCPCS: 0241U; 80048; 80076; 81001; 81025; 83690; 85025; 86140; 99283

== ENCOUNTER 2024-03-13 13:05 | Outpatient (AMB) | payer MEDICAID, SELFPAY ==
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
[2024-03-13 13:11] VITALS: BP 88/60; PULSE 60; RESP 12; O2SAT 100; BMI 27.9
== END 2024-03-13 13:58 | disposition home or self-care (01) ==
PROVIDERS: PCP Nurse Practitioner Family; Visit Provider Nurse Practitioner Family
DX: Z09 Encounter for follow-up examination after completed treatment for conditions other than malignant neoplasm (principal); R81 Glycosuria; R73.09 Other abnormal glucose; R10.32 Left lower quadrant pain; R63.4 Abnormal weight loss; Z13.9 Encounter for screening, unspecified

== ENCOUNTER → 2024-03-13 13:05 | Outpatient (BNVA) | payer MEDICAID, SELFPAY | PROVIDERS: PCP Nurse Practitioner Family; Visit Provider Nurse Practitioner Family | DX: Z09 Encounter for follow-up examination after completed treatment for conditions other than malignant neoplasm (principal); R81 Glycosuria; R10.32 Left lower quadrant pain; R63.4 Abnormal weight loss | CPT/HCPCS: 83036; 99212 ==

== ENCOUNTER 2024-03-13 14:03 | Outpatient (REF) | payer MEDICAID, SELFPAY ==
[2024-03-13 17:37] LABS: Hematocrit 40.3 % (37.0-47.0); Hemoglobin 13.3 g/dl (12.0-16.0); Mean Corpuscular Hemoglobin 30.9 pg (27.0-33.0); Mean Corpuscular Volume 93.7 fL (80.0-98.0); Mean Platelet Volume 11.4 fL (9.4-12.3); Platelet Count 214 X10*3/uL (160-400); Red Cell Distribution Width 11.7 % (11.0-16.0); White Blood Count 10.2 X10*3/uL (4.8-10.8)
[2024-03-13 17:54] LABS: Alanine Aminotransferase 20 U/L (0-31); Albumin Level 3.9 g/dL (3.5-5.0); Alkaline Phosphatase 55 U/L (39-117); Anion Gap 10 (12-20); Aspartate Amino Transferase 18 U/L (5-31); Bilirubin Total 0.9 mg/dL (0.0-1.0); Blood Urea Nitrogen 7 mg/dL (9-16); Carbon Dioxide 27 mmol/L (22-29); Chloride 109 mmol/L (96-108); Estimated Glomerular Filt Rate > 60; Glucose Random 95 mg/dL (60-115); Potassium 3.7 mmol/L (3.3-5.1); Sodium 142 mmol/L (135-145); Total Protein 6.6 g/dL (6.5-8.0)
[2024-03-13 18:09] LABS: TSH reflex Free T4 0.93 uIU/mL (0.32-4.0)
[2024-03-14 09:24] LABS: CRP High Sensitivity 1.2 mg/L
== END 2024-03-13 14:04 | disposition home or self-care (01) ==
LOC: HO.WFDLDS 14:03
PROVIDERS: Visit Provider Nurse Practitioner Family
DX: R73.09 Other abnormal glucose (principal); R81 Glycosuria; R10.32 Left lower quadrant pain; R63.4 Abnormal weight loss
CPT/HCPCS: 36415; 80053; 84443; 85027; 86141

== ENCOUNTER 2024-05-01 09:25 | Outpatient (REF) | payer OTHER, SELFPAY ==
--- NOTE | ~2024-05-01 | US_ITS ---
CLINICAL HISTORY: R73.09 - Other abnormal glucose US abdomen complete Comparison: None Findings: The visualized pancreas is normal. The aorta and inferior vena cava are normal caliber. The liver is normal in size and echotexture. There is no intrahepatic bile duct dilatation. The common duct is 3.0 mm in diameter. The gallbladder is contracted. No evidence of gallstone in the gallbladder. The main portal vein is antegrade. The right kidney is 11 cm in length. The left kidney is 11 cm in length. The spleen is normal. No ascites. IMPRESSION: Unremarkable complete abdominal ultrasound. This document has been electronically signed by: Easton Dale MD on 05/03/2024 14:47:43
== END 2024-05-01 09:26 | disposition home or self-care (01) ==
LOC: HO.US 09:25
PROVIDERS: PCP Nurse Practitioner Family; Visit Provider Nurse Practitioner Family
DX: R10.32 Left lower quadrant pain (principal); R81 Glycosuria; R63.4 Abnormal weight loss
CPT/HCPCS: 76700

== ENCOUNTER → 2024-05-01 09:28 | Outpatient (BNV) | payer OTHER, SELFPAY | PROVIDERS: PCP Nurse Practitioner Family; Visit Provider Nuclear Medicine | DX: R73.09 Other abnormal glucose (principal) | CPT/HCPCS: 76700 ==

== ENCOUNTER 2024-08-06 16:36 | Emergency (ER) | payer OTHER, SELFPAY ==
[2024-08-06 17:03] VITALS: BP 110/66; BP 98/58; PULSE 50; PULSE 54; RESP 12; TEMP 37.2; O2SAT 100; BMI 29.3
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
[2024-08-06] MEDS: 0.9 % Sodium Chloride 1,000 ML 999 ML IV ×2 (17:32→18:50)
[2024-08-06 17:33] VITALS: RESP 16
[2024-08-06 17:41] LABS: Basophils Percent Auto 0.3 % (0-2); Hematocrit 38.5 % (37.0-47.0); Hemoglobin 13.8 g/dl (12.0-16.0); Imm Gran Abs Auto 0.07 X10*3/uL (0.00-0.03); Imm Gran Pct Auto 0.4 % (0.0-0.4); Lymphocytes Absolute Auto 0.8 X10*3/uL (1.2-4.9); Lymphocytes Percent Auto 4.9 % (20-40); MANUAL DIFF FLAG SCAN; Mean Corpuscular HGB Conc 35.8 g/dl (31.0-35.0); Mean Corpuscular Hemoglobin 31.4 pg (27.0-33.0); Mean Corpuscular Volume 87.5 fL (80.0-98.0); Mean Platelet Volume 10.7 fL (9.4-12.3); Monocytes Absolute Auto 0.3 X10*3/uL (0.1-1.2); Monocytes Percent Auto 1.7 % (2-11); Neutrophils Absolute Auto 14.8 x10*3/uL (2.0-8.3); Neutrophils Percent Auto 92.7 % (45-73); Platelet Count 253 X10*3/uL (160-400); Red Cell Distribution Width 11.5 % (11.0-16.0); SCAN SMEAR FLAG 1
[2024-08-06] MEDS: diphenhydrAMINE HCL 50 MG/ML VIAL 12.5 MG IVPUSH (17:47)
[2024-08-06] MEDS: ondansetron HCL 4 MG/2 ML VIAL IVPUSH (17:47)
[2024-08-06] MEDS: Ketorolac Tromethamine 15 MG/ML VIAL IVPUSH (17:49)
[2024-08-06 18:03] LABS: SLIDE REVIEW VERIFIED
[2024-08-06 18:05] LABS: Alanine Aminotransferase 14 U/L (0-31); Albumin Level 4.5 g/dL (3.5-5.0); Anion Gap 16 (12-20); Aspartate Amino Transferase 20 U/L (5-31); Bilirubin Total 1.5 mg/dL (0.0-1.0); Blood Urea Nitrogen 11 mg/dL (9-16); Calcium 9.5 mg/dL (8.4-10.2); Carbon Dioxide 19 mmol/L (22-29); Chloride 109 mmol/L (96-108); Creatinine Clr Calc Pharmacy 122.3; Estimated Glomerular Filt Rate > 60; Glucose Random 133 mg/dL (60-115); Lipase 14 U/L (8-78); Magnesium 1.5 mg/dL (1.6-2.6); Potassium 3.7 mmol/L (3.3-5.1); Sodium 140 mmol/L (135-145); Total Protein 7.2 g/dL (6.5-8.0)
[2024-08-06] MEDS: Metoclopramide HCl 10 MG/2 ML VIAL IVPUSH (18:14)
[2024-08-06 18:17] LABS: HCG Quantitative < 2 mIU/mL
[2024-08-06 18:21] LABS: Influenza A PCR NEGATIVE (Negative); Influenza B PCR NEGATIVE (Negative); Resp Syncy Virus RNA Qual PCR NEGATIVE (Negative); SARS COV2 PCR INHOUSE NEGATIVE (Negative)
[2024-08-06] MEDS: Magnesium Sulfate/H2O 2 GM/50 ML PIGGYBACK IV (18:49)
[2024-08-06 19:46] LABS: Alkaline Phosphatase 54 U/L (39-117)
[2024-08-06 19:49] LABS: Appearance Urine Clear; Color Urine Yellow; Glucose Urine UA Negative (Negative); Leukocyte Esterase Urine Negative (Negative); Nitrite Urine Negative (Negative); PH >= 9.0 (5.0-9.0); Specific Gravity - Urine 1.015 (1.005-1.025); Urine Blood Negative (Negative); Urine Ketones 15 mg/dL (Negative); Urine Protein Negative (Neg-Trace)
[2024-08-06 19:52] LABS: UPreg QC Valid YES; Urine Pregnancy NEGATIVE (NEGATIVE)
[2024-08-06 19:58] LABS: Amphetamine Screen Urine Not Detected (Not Detect); Barbiturates, Urine Not Detected (Not Detect); Benzodiazepines Screen Urine Not Detected (Not Detect); Buprenorphine Scr Not Detected (Not Detect); Cannabinoid Screen Urine POSITIVE (Not Detect); Cocaine Screen Urine Not Detected (Not Detect); Fentanyl, urine Not Detected (Not Detect); Methadone Screen, Urine Not Detected (Not Detect); Opiate Screen Urine Not Detected (Not Detect); Oxycodone Screen Urine Not Detected (Not Detect); Phencyclidine Screen Urine Not Detected (Not Detect)
[2024-08-06 20:48] VITALS: BP 110/49; PULSE 50; RESP 18; TEMP 36.9; O2SAT 100
--- NOTE | 2024-08-06 21:14 | ECG_ITS ---
Test Reason : CHECK QTC Blood Pressure : */* mmHG Vent. Rate : 60 BPM Atrial Rate : 60 BPM P-R Int : 152 ms QRS Dur : 94 ms QT Int : 446 ms P-R-T Axes : 1 47 47 degrees QTcB Int : 446 ms Normal sinus rhythm Nonspecific ST and T wave abnormality Borderline ECG No previous ECGs available Referred By: Alfonzo Mueller Electronically Signed By: TREVOR LUJAN
[2024-08-06] MEDS: Haloperidol Lactate 5 MG/ML VIAL 2.5 MG IVPUSH (21:38)
[2024-08-06 23:05] VITALS: BP 98/56; PULSE 76; RESP 16; TEMP 36.8; O2SAT 97
[2024-08-06 23:06] VITALS: BP 98/56; PULSE 76; RESP 16; TEMP 36.8; O2SAT 97
== END 2024-08-06 23:07 | disposition home or self-care (01) ==
PROVIDERS: Physician Assistant; Emergency Provider Emergency Medicine
DX: K52.9 Noninfective gastroenteritis and colitis, unspecified (principal); Z03.818 Encounter for observation for suspected exposure to other biological agents ruled out; J45.909 Unspecified asthma, uncomplicated; Z79.899 Other long term (current) drug therapy
CPT/HCPCS: 0241U; 80053; 80307; 81003; 81025; 83690; 83735; 84702; 85025; 93005; 96361; 96374; 96375; 99285; J1200; J1630; J1885; J2405; J2765; J3475

== ENCOUNTER → 2024-08-06 21:14 | Outpatient (BNV) | payer OTHER, SELFPAY | PROVIDERS: Emergency Provider Emergency Medicine; Visit Provider Internal Medicine | DX: Z13.6 Encounter for screening for cardiovascular disorders (principal) | CPT/HCPCS: 93010 ==

== ENCOUNTER 2024-09-06 11:27 | Outpatient (AMB) | payer OTHER, SELFPAY ==
--- NOTE | 2024-09-06 11:32 | A.OFFPC_ITS ---
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 with your provider about colon cancer screening if you have a strong family history of colon cancer or polyps, or if you have had inflammatory bowel disease or polyps yourself. Routine bone density screening of women under 40 is not recommended. [place] [facility] Crisis Lifeline: Available 24 hours a day, 7 days a week, 365 days a year Dial 988 with any telephone to speak to someone immediately [facility] [address], [place] [id number] , Walk ins [facility] (Mental / Behavioral health therapist: [address], [place] [id number] [facility]: [address] [place] [address] Open from 10am - 12pm (walk ins [place]) [facility] Crisis Services: [address] [place] [address] Walk in hours from 10am - 12pm Behavioral health Network: [address] [place] [address] [place] [id number] Monday through Monday 8am - 8pm Monday and Monday 9am - 5pm Crisis Hotlines Suicide prevention, domestic violence, and other crisis hotlines for youth, young adults, and their friends and families. [facility] Safeline: The [facility] Safeline helps youth who have run away, are thinking about running away, or who already ran away but are ready to come home. Parents and guardians can also contact the hotline if they are worried about their child running away or if their child has already left home. The hotline is available 24 hours a day, seven days a week. Youth, parents, and guardians can also use the online chat feature on the [facility] Safeline's website to ask for help and get support, [place] [address]. [place] [facility] National Suicide Prevention Lifeline: The [place] Suicide Prevention Lifeline is a network of local crisis centers that are available 24/10 to provide support for youth and adults who are in any kind of emotional crisis. In addition to the main hotline number listed above, there are several other numbers to call depending on your needs: Surinamese Language: Deaf and Hard of Hearin1-455.266.2390 Veterans: Disaster Distress: Anyone can also use their online chat feature on their website. [place] Suicide Prevention Lifeline [facility] Helpline: The [facility] Helpline is available to anyone in [place] who is need of emotional support. Anyone can call or text the helpline to receive help from specially trained volunteers. [place] high school and college students can also get online support through the IM[employer]_ program. For high school students, volunteers ages 15-18 are available Monday- from 6-9PM. For college students, [employer]_ is available Monday-Monday from 5-9PM. The [place] [facility] - [facility] [place] [facility] is a 24/10 crisis intervention and suicide prevention hotline for LGBTQ youth. Youth can also text [place] to for support, or use the online chat feature on the [place] Project's website. [employer] is available Monday-Monday between 3-10PM. [employer] is available seven days a week between 3-10PM. SafeLink: SafeLink is for anyone who is being affected by domestic violence or dating violence. Volunteers at [employer] speak Hong Konger and Surinamese, and [employer] also has a service that can provide translation in more than 130 languages. TTY:
[2024-09-06 11:33] VITALS: BP 86/52; PULSE 77; RESP 16; O2SAT 99; BMI 25.5
== END 2024-09-06 12:27 | disposition home or self-care (01) ==
LOC: HO.HMCFM 11:27
PROVIDERS: PCP Nurse Practitioner Family; Visit Provider Nurse Practitioner Family
DX: Z00.01 Encounter for general adult medical examination with abnormal findings (principal); F33.1 Major depressive disorder, recurrent, moderate; F41.1 Generalized anxiety disorder; Z87.898 Personal history of other specified conditions; J45.20 Mild intermittent asthma, uncomplicated; F43.10 Post-traumatic stress disorder, unspecified; R14.2 Eructation; H53.8 Other visual disturbances; R10.32 Left lower quadrant pain; R63.4 Abnormal weight loss; M65.941 Unspecified synovitis and tenosynovitis, right hand; Z09 Encounter for follow-up examination after completed treatment for conditions other than malignant neoplasm

== ENCOUNTER → 2024-09-06 11:27 | Outpatient (BNVA) | payer OTHER, SELFPAY | PROVIDERS: PCP Nurse Practitioner Family; Visit Provider Nurse Practitioner Family | DX: Z00.01 Encounter for general adult medical examination with abnormal findings (principal); R11.0 Nausea; K21.9 Gastro-esophageal reflux disease without esophagitis; F41.1 Generalized anxiety disorder; F33.1 Major depressive disorder, recurrent, moderate; J45.20 Mild intermittent asthma, uncomplicated; F43.10 Post-traumatic stress disorder, unspecified; R14.2 Eructation; H53.8 Other visual disturbances; R10.32 Left lower quadrant pain; R63.4 Abnormal weight loss; M65.941 Unspecified synovitis and tenosynovitis, right hand; Z09 Encounter for follow-up examination after completed treatment for conditions other than malignant neoplasm; Z87.898 Personal history of other specified conditions; Z79.899 Other long term (current) drug therapy | CPT/HCPCS: 96127; 96160; 99212; 99395 ==

== ENCOUNTER 2024-12-02 18:14 | Emergency (ER) | payer OTHER, SELFPAY ==
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
[2024-12-02 18:28] VITALS: BP 121/60; PULSE 61; RESP 20; TEMP 37; O2SAT 98; BMI 21.0
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
[2024-12-02] MEDS: Lidocaine HCl 1%/Epi 1:100,000 10 ML VIAL INFILTRATI (22:38)
[2024-12-02 23:23] VITALS: BP 121/60; PULSE 61; RESP 20; TEMP 37; O2SAT 98
== END 2024-12-02 23:23 | disposition home or self-care (01) ==
PROVIDERS: Emergency Provider Emergency Medicine; PCP Nurse Practitioner Family
DX: S60.221A Contusion of right hand, initial encounter (principal); W25.XXXA Contact with sharp glass, initial encounter; Y93.9 Activity, unspecified; Y92.9 Unspecified place or not applicable; Y99.9 Unspecified external cause status; M79.641 Pain in right hand
CPT/HCPCS: 73110; 73120; 99282; 99284; J2004

== ENCOUNTER → 2024-12-02 18:31 | Outpatient (BNV) | payer OTHER, SELFPAY | PROVIDERS: PCP Nurse Practitioner Family; Visit Provider Radiology Neuroradiology | DX: M25.531 Pain in right wrist (principal); M79.641 Pain in right hand | CPT/HCPCS: 73110; 73120 ==